=== PATIENT | male | born 1960 | race Caucasian/White ===

== ENCOUNTER 2020-10-16 12:31 | Emergency (ER) | payer BC, SELFPAY ==
[2020-10-16 13:05] VITALS: BP 136/87; PULSE 78; RESP 16; TEMP 37.1; O2SAT 97
--- NOTE | 2020-10-16 13:35 | ED.URI ---
HPI - URI/Sore Throat General Chief Complaint: Upper Respiratory Infection Stated Complaint: cough/congestion Source: patient Mode of arrival: ambulatory Limitations: no limitations History of Present Illness HPI Narrative: 60-year-old male presents to urgent care with complaints of dry nonproductive cough and nasal congestion for the past 5 days. Patient has not tried taking any [id number] medications for symptoms. Patient reports that his currently has similar symptoms. Patient is a smoker. Patient denies nausea, vomiting, diarrhea, fever, body aches, chills, shortness of breath or wheezing. MD elicited complaint: cough and other (chest congestion ) Onset (ago): day(s) (5) Able to tolerate fluids by mouth: Yes Relieving factors: nothing Context: sick contacts Treatments prior to arrival: none Related Data Allergies Allergy/AdvReac Type Severity Reaction Status Date / Time No Known Allergies Allergy Mild Verified 10/16/20 13:03 Review of Systems Constitutional: Constitutional: Denies chills, Denies fatigue, Denies fever(s) and Denies weakness ENT: Denies dysphagia, Denies dizziness, Denies epistaxis, Denies nasal congestion and Denies sore throat Respiratory: Respiratory: Reports chest congestion, Reports cough, Denies dyspnea and Denies wheezing Gastrointestinal: Gastrointestinal: Denies abdominal pain, Denies diarrhea, Denies nausea and Denies vomiting Neurologic: Denies vertigo, Denies dizziness and Denies syncope Endocrine: Endocrine: Denies fatigue PMFSH Family History Family History Mother Patient's mother is in good health Family history of thoracic aortic aneurysm Social History Social History Smoking status: Heavy tobacco smoker Comments At time of signature, I agree with nursing past medical, surgical, social and family history. There is no relevant family history pertinent to the presenting complaint. Exam Const: General: no acute distress and alert Nutritional Appearance: well nourished Orientation/consciousness: patient oriented x3 HENMT: Head: normal to inspection Ears: external ears normal Mouth: Yes moist mucous membranes Throat: posterior oropharynx normal and uvula midline Neck: Neck: normal visual inspection Chest: Chest palpation & inspection: normal inspection of the chest Resp: Effort & Inspection: normal respiratory effort, not labored and not tachypneic Auscultation: clear to auscultation bilaterally, no rales and no wheezes Cardio: Rate: regular rate Rhythm: regular rhythm Heart sounds: no murmurs Skin: General skin exam: normal color Rashes: no rashes Wounds: no wounds Neuro: General: patient oriented x3, moves all extremities and no meningeal signs Speech: normal speech Extrem: General: normal to inspection Course Vital Signs Vital signs: Vital Signs Temperature 37.1 C 10/16/20 13:05 Pulse Rate 78 10/16/20 13:05 Respiratory Rate 16 10/16/20 13:05 Blood Pressure 136/87 10/16/20 13:05 Pulse Oximetry 97 10/16/20 13:05 Temperature 37.1 C 10/16/20 13:05 Pulse Rate 78 10/16/20 13:05 Respiratory Rate 16 10/16/20 13:05 Blood Pressure 136/87 10/16/20 13:05 Pulse Oximetry 97 10/16/20 13:05 MDM - URI/Sore Throat MDM Narrative Medical decision making narrative: Patient agrees to take Claritin daily. Patient agrees to take Tessalon as needed for cough. Patient understand that he is to self quarantine for 10 days since onset of symptoms. Patient understands that local health department should be contacting him. Discussed with patient concern importance of monitoring symptoms very closely. Patient agrees to monitor symptoms and agrees to proceed to the emergency room if symptoms worsen. Differential Diagnosis Differential diagnosis: Likely upper respiratory infection, otitis media and sinusitis Lab Data Labs:
== END 2020-10-16 13:47 | disposition home or self-care (01) ==
PROVIDERS: Emergency Provider Nurse Practitioner Family; PCP Internal Medicine
DX: U07.1 COVID-19 (principal); E78.00 Pure hypercholesterolemia, unspecified
CPT/HCPCS: 87426; 99213; C9803; G0463

== ENCOUNTER 2023-02-21 11:22 | Outpatient (CLI) | payer BC, SELFPAY ==
[2023-02-21 11:42] LABS: Basophils Absolute Auto 0.1 K/mm3 (0.0-0.1); Basophils Percent Auto 0.7 % (0.2-1.2); Eosinophils Absolute Auto 0.6 K/mm3 (0-0.3); Eosinophils Percent Auto 6.2 % (0-4.4); Hematocrit 40.5 % (42.0-52.0); Hemoglobin 13.6 g/dL (14.0-18.0); Immature Granulocyte Absolute 0.02 K/mm3 (0.00-0.031); Immature Granulocyte Percent A 0.2 % (0-0.5); Lymphocytes Absolute Auto 1.58 K/mm3 (0.9-3.2); Lymphocytes Percent Auto 15.6 % (18.3-44.2); Mean Corpuscular HGB Conc 33.6 g/dl (32-36); Mean Corpuscular Hemoglobin 34.2 pg (26-34); Mean Corpuscular Volume 101.8 fl (80-100); Mean Platelet Volume 8.7 fl (7.4-10.4); Monocytes Absolute Auto 0.8 K/mm3 (0.1-0.6); Monocytes Percent Auto 8.3 % (2.6-8.5); Platelet Count Result 235 k/mm3 (150-375); Red Blood Count 3.98 M/mm3 (4.6-6.20); Red Cell Distribution Width 12.4 % (11.5-14.5); White Blood Count 10.2 K/mm3 (4.5-10.0)
[2023-02-21 13:54] LABS: Alanine Aminotransferase 23 U/L (6-50); Albumin Level 4.3 g/dL (3.5-5.1); Alkaline Phosphatase 73 U/L (38-126); Anion Gap 7 mmol/L (8-16); Aspartate Amino Transferase 25 U/L (17-59); Bilirubin,Total 0.4 mg/dL (0.2-1.3); Blood Urea Nitrogen 24 mg/dL (9-20); Calcium 8.9 mg/dL (8.4-10.2); Carbon Dioxide 27 mmol/L (22-30); Chloride 106 mmol/L (98-107); Estimated Glomerular Filt Rate > 60; Glucose 82 mg/dL (65-110); Potassium 4.5 mmol/L (3.4-5.0); Sodium 140 mmol/L (137-145)
[2023-02-21 15:01] LABS: Folic Acid > 20.0 ng/mL (2.76->20)
[2023-02-24 11:46] LABS: Methylmalonic Acid 146 nmol/L (87-318)
== END 2023-02-21 11:23 | disposition home or self-care (01) ==
LOC: ANHLAB 11:23
PROVIDERS: PCP Internal Medicine; Visit Provider Internal Medicine Hematology & Oncology
DX: D75.89 Other specified diseases of blood and blood-forming organs (principal)
CPT/HCPCS: 36415; 80053; 82607; 82746; 83921; 84443; 85025

== ENCOUNTER 2023-03-14 08:34 | Outpatient (CLI) | payer BC, SELFPAY ==
--- NOTE | ~2023-03-14 | US_ITS ---
Abdominal Sonogram: Real-time sonographic imaging of the abdomen was performed. Clinical History: Macrocytosis Findings: The liver appears normal with no evidence of bile duct dilatation. There is a 2.4 x 3.2 x 2.2 cm hyperechoic mass in the right hepatic lobe. Main portal vein demonstrates normal direction of flow. The spleen is normal in size without evidence of focal lesion. The gallbladder is well distend ed, and contains small echogenic gallstones. No gallbladder wall thickening. The common bile duct cara sures 4 mm. The visualized pancreas, aorta, and IVC are unremarkable. The right kidney measures 11. 0 cm in length and the left kidney measures 11.1 cm. There is no hydronephrosis or renal calculus. Impression: Cholelithiasis. 2.4 x 3.2 x 2.2 cm hyperechoic hepatic mass, most likely hemangioma. This likely correlates with lesi on seen on prior MR dated 09/24/2017. Reviewed, dictated and finalized at [facility]. Impression: Cholelithiasis. 2.4 x 3.2 x 2.2 cm hyperechoic hepatic mass, most likely hemangioma. This likel y correlates with lesion seen on prior MR dated 09/24/2017.
== END 2023-03-14 08:35 | disposition home or self-care (01) ==
PROVIDERS: PCP Internal Medicine; Visit Provider Internal Medicine Hematology & Oncology
DX: D75.89 Other specified diseases of blood and blood-forming organs (principal)
CPT/HCPCS: 76700

== ENCOUNTER 2023-09-24 11:00 | Outpatient (CLI) | payer BC, SELFPAY ==
[2023-09-24 11:16] LABS: Basophils Absolute Auto 0.1 K/mm3 (0.0-0.1); Basophils Percent Auto 0.8 % (0.2-1.2); Eosinophils Absolute Auto 0.9 K/mm3 (0-0.3); Eosinophils Percent Auto 9.9 % (0-4.4); Hemoglobin 13.5 g/dL (14.0-18.0); Immature Granulocyte Absolute 0.02 K/mm3 (0.00-0.031); Immature Granulocyte Percent A 0.2 % (0-0.5); Lymphocytes Absolute Auto 2.04 K/mm3 (0.9-3.2); Lymphocytes Percent Auto 22.8 % (18.3-44.2); Mean Corpuscular HGB Conc 33.8 g/dl (32-36); Mean Corpuscular Hemoglobin 33.9 pg (26-34); Mean Corpuscular Volume 100.5 fl (80-100); Mean Platelet Volume 8.9 fl (7.4-10.4); Monocytes Absolute Auto 0.8 K/mm3 (0.1-0.6); Monocytes Percent Auto 9.4 % (2.6-8.5); Neutrophils Absolute Auto 5.1 K/mm3 (1.3-6.7); Neutrophils Percent Auto 56.9 % (45.5-73.1); Platelet Count Result 240 k/mm3 (150-375); Red Blood Count 3.98 M/mm3 (4.6-6.20); Red Cell Distribution Width 12.6 % (11.5-14.5); White Blood Count 8.9 K/mm3 (4.5-10.0)
[2023-09-24 11:24] LABS: Blood Urea Nitrogen 16 mg/dL (8-26); Carbon Dioxide 25 mmol/L (22-30); Chloride 106 mmol/L (98-109); Estimated Glomerular Filt Rate > 60; Glucose 97 mg/dL (70-105); Ionized Calcium (POC) 1.22 mmol/L (1.11-1.31); Potassium 4.6 mmol/L (3.5-4.9); Sodium 141 mmol/L (138-146)
[2023-09-24 22:59] LABS: Folic Acid > 20.0 ng/mL (2.76->20)
== END 2023-09-24 11:01 | disposition home or self-care (01) ==
LOC: ANHLAB 11:01
PROVIDERS: PCP Internal Medicine; Visit Provider Internal Medicine Hematology & Oncology
DX: D75.89 Other specified diseases of blood and blood-forming organs (principal)
CPT/HCPCS: 36415; 80047; 82607; 82746; 85025

== ENCOUNTER 2025-03-19 19:15 | Observation (INO) | payer MEDICARE, SELFPAY ==
[2025-03-19] VITALS (13 sets, daily range): BP systolic 130–161; BP diastolic 76–98; PULSE 70–93; RESP 14–24; TEMP 36.7; O2SAT 94–97
--- NOTE | ~2025-03-19 | CT_ITS ---
EXAMINATION: CTA BRAIN/CAROTID DATE: 03/19/2025 19:54 INDICATION: Vertigo TECHNIQUE: Computed tomographic angiography (CTA) of the head and neck was performed with 100 mL Omnipaque-350 intravenous contrast. Multiplanar reconstructions and maximum intensity projection 3D-reconstructions of the carotid arteries and of the intracranial arteries were created by the technologist on a separate workstation. Precontrast CT of the head was also obtained. Automated exposure control and iterative reconstruction technique were employed.The dose-length product was 1734.79 mGy-cm. COMPARISON: None. FINDINGS: Head: No acute intracranial hemorrhage, acute infarction or abnormal extra axial fluid collection. Ventricles are normal and symmetric. No mass/mass effect. No abnormally enhancing brain lesions on the postcontrast imaging. Mucosal thickening in the left maxillary and bilateral ethmoid sinuses. Thickened scl erotic aguilar of the right maxillary sinus consistent with sequela of chronic sinusitis. The orbits and mastoid air cells are normal. Debris/cerumen at the left external auditory canal. Intracranial arteries Right vertebral artery is dominant with nearly indiscernible diminutive left vertebral artery. Minimal atherosclerotic plaque without hemodynamically significant stenosis at the bilateral carotid siphons. There is no hemodynamically significant stenosis in the vertebral, basilar and internal carotid arteries. Both A1 and P1 segments are patent. There is also a patent right posterior communicating artery. There are no aneurysms identified. Cerebral arterial arborization appears symmetric. Carotid arteries: The aortic arch and the great vessels arising from the arch are normal in caliber with no dissection or hemodynamically significant stenosis. Small amount of nonhemodynamically significant atherosclerotic plaque at the distalmost right common carotid artery. There is no evident atherosclerotic plaque with 0% stenosis of the right and left carotid bulbs relative to normal distal artery lumen diameter (NASCET criteria). Mild to moderate emphysema with dependent atelectasis in the visualized upper lungs. Cervical soft tissues are unremarkable. Mild cervical spondylosis. IMPRESSION: 1. No evident atherosclerotic plaque with 0% stenosis of the right left carotid bulbs relative to normal distal artery lumen diameter (NASCET criteria). 2. Unremarkable cerebral CT angiogram with no hemodynamically significant stenosis, aneurysm or thrombosis. 3. Normal for age brain with no acute intracranial process or abnormally enhancing brain lesions. Reviewed, dictated and finalized at location A. IMPRESSION: 1. No evident atherosclerotic plaque with 0% stenosis of the right left carotid bulbs relative to normal distal artery lumen diameter (NASCET criteria). 2. Unremarkable cerebral CT angiogram with no hemodynamically significant steno sis, aneurysm or thrombosis. 3. Normal for age brain with no acute intracranial process or abnormally enhanc ing brain lesions.
--- NOTE | ~2025-03-19 | XR_ITS ---
EXAMINATION: XR chest 1V portable DATE: 03/19/2025 19:58 INDICATION: Syncope TECHNIQUE: frontal view of the chest was obtained. COMPARISON: Chest CT dated 06/19/2018 and chest radiograph dated 11/12/05 FINDINGS: Increased interstitial opacities and bronchial wall thickening in the left lower lung zone and bilateral perihilar regions. No pleural effusion or pneumothorax. The cardiomediastinal silhouette is normal. IMPRESSION: 1. Increased interstitial opacities and bronchial wall thickening in the bilateral perihilar regions and left lower lung zone which could represent bronchitis and probably slight/early pneumonia or asymmetric mild pulmonary edema. Reviewed, dictated and finalized at location A. IMPRESSION: 1. Increased interstitial opacities and bronchial wall thickening in the bilate ral perihilar regions and left lower lung zone which could represent bronchitis and probably slight/early pneumonia or asymmetric mild pulmonary edema.
--- NOTE | ~2025-03-19 | MR_ITS ---
EXAMINATION: MR brain/brain stem wo/w con DATE: 03/20/2025 14:24 INDICATION: Vertigo TECHNIQUE: Magnetic resonance imaging (MRI) of the brain and brainstem was performed without and with 17 mL Multihance intravenous contrast. Sequences included sagittal and axial T1-weighted SE, axial diffusion-weighted FS SE, axial 3D SWAN, axial T2-weighted FLAIR, and axial T2-weighted FSE. Postcontrast axial and coronal T1-weighted SE was obtained. Apparent diffusion coefficient (ADC) maps were created. COMPARISON: CT and CT angiogram dated 03/19/2025 FINDINGS: There are no areas of restricted diffusion to suggest acute infarction. No intracranial hemorrhage or abnormal intracranial mass lesion. There are scattered areas of nonspecific increased T2-weighted signal intensity in the cerebral white matter, predominantly involving the deep and periventricular whi te matter. There are no intraparenchymal signal abnormalities seen on the other pulse sequences. The ventricles are symmetric and normal in size. There are no abnormal extra-axial fluid collections. Flow voids are seen in the cerebral arteries on the T2-weighted sequences consistent with their expected patency. Right vertebral artery is dominant. Visualized orbits and soft tissues are unremarkable. Mucosal thickening throughout the paranasal sinuses. There are no areas of abnormal enhancement on the post contrast images. IMPRESSION: 1. Mild scattered mesenteric white matter T2 hyperintensity which within normal limits for age and likely sequela of chronic small vessel ischemic disease. No acute intracranial process or abnormally enhancing brain lesions. Reviewed, dictated and finalized at location A.
--- NOTE | 2025-03-19 19:18 | ECG_ITS ---
Test Date: 2025-03-19 19:19:56 Measurements Intervals [place] Rate: 71 P: 18 DE: 180 QRS: -4 QRSD: 97 T: 30 QT: 373 QTc: 408 Interpretive Statements SINUS RHYTHM EARLY PRECORDIAL R/S TRANSITION BASELINE ARTIFACT- II, III, AVR, AVL, AVF BORDERLINE ECG No previous ECG available for comparison Electronically Signed On 03-20-2025 06:20:43 CDT by Oleg Liu D.O.
--- NOTE | 2025-03-19 19:31 | ED.DIZZY ---
HPI - Dizziness General Chief Complaint: Syncope Stated Complaint: NEAR SYNCOPE Source: patient Mode of arrival: EMS Limitations: no limitations History of Present Illness HPI Narrative: Patient is a 65-year-old male presents to the emergency department by EMS for feeling off balance. Patient also started about 45 minutes to 1 hour ago around 6:30 p.m., patient was resting and went to stand up and started to feel very off balance like everything was spinning around him, notes it has been constant since started without any resolution or fatigue. Patient denies any history of this in the past. Patient denies use of blood thinners aside from 81 mg aspirin. Patient denies any recent injuries or recent illness. Patient denies chest pain, difficulty breathing, abdominal pain, vomiting, melena, hematochezia, diarrhea, focal weakness, numbness, difficulty swallowing, vision changes outside of the room spinning. Admits to associated nausea. Related Data Allergies Allergy/AdvReac Type Severity Reaction Status Date / Time No Known Allergies Allergy Mild Verified 10/16/20 13:03 Review of Systems Review of Systems: A 10 system review of systems was completed on the patient and is negative except for what is stated in the HPI. Nursing and ancillary documentation was reviewed. [facility] Family History Family History Mother Patient's mother is in good health Family history of thoracic aortic aneurysm Social History Social History Smoking status: Heavy tobacco smoker Exam Narrative: CONST: No acute distress. Well nourished. Patient is lying in the bed with his eyes closed. HENMT: Head is normocephalic and atraumatic. Moist mucous membranes. No posterior oropharynx erythema. EYES: No scleral icterus. No conjunctival injection or pallor. PERRL. NECK: No meningeal signs. RESP: Able to speak in full sentences. Normal respiratory effort. CTAB. CARDIO: Regular rate. Regular rhythm. 2+ DP and radial pulses bilaterally. GI: Nondistended. No tenderness to palpation. Soft. : No CVA tenderness to palpation. SKIN: No rashes or lesions noted on exposed skin. NEURO: Oriented x3. Moves all extremities. No drift to the bilateral upper extremities and no drift to the bilateral lower extremities. Lcninx-[id number] testing bilaterally is normal. Normal rjnf-om-[id number] testing bilaterally. speech is clear and fluent. No olvin inattention or extinction. Sensation intact to light touch throughout all 4 extremities. bilateral nystagmus is present. Visual mason intact to confrontation. No facial asymmetry. EXTREM/MSK/BACK: No pedal edema. PSYCH: Normal affect. Course Vital Signs Vital signs: Vital Signs Temperature 98.0 F 03/19/25 19:13 Pulse Rate 70 03/19/25 19:13 Respiratory Rate 18 03/19/25 19:13 Blood Pressure 158/98 H 03/19/25 19:13 Pulse Oximetry 95 03/19/25 19:13 Oxygen Delivery Room Air 03/19/25 19:13 Temperature 98.0 F 03/19/25 19:13 Pulse Rate 70 03/19/25 19:13 Respiratory Rate 18 03/19/25 19:13 Blood Pressure 158/98 H 03/19/25 19:13 Pulse Oximetry 95 03/19/25 19:13 Oxygen Delivery Room Air 03/19/25 19:13 MDM - Dizziness MDM Narrative Medical decision making narrative: Patient presents with the above complaint. Initial vitals are remarkable for no significant abnormalities. Physical examination as noted above. DDx: CVA, BPPV, metabolic derangement, dehydration, seizure, labyrinthitis, Meniere's, near syncope, ACS. NIHSS: 0 last known well was around 6:30 p.m. tonight. Patient sent to the CT scanner, EKG, laboratory analysis, continues cardiac monitoring, continuous pulse oximetry, chest x-ray, IV fluids. Concern for possible posterior CVA given the constant vertigo, will discuss with Neurology regarding potential tNK administration. 20:03 - [facility] access line contacted to speak with the stroke team regarding tNK administration. I was connected with Dr. Aguayo the [facility] neurologist. Recommends to avoid IV thrombolysis if mild symptoms, often these patients will do well overtime, no contraindications, recommends shared decision with patient. Recommends not giving thrombolysis unless patient really wants it. 20:10 - Patient initially states that he feels like it is getting slightly better but has not gone away, she decision making performed regarding IV thrombolysis and patient is hesitant at this time, some talk with his about it further and make a decision, will get back to me shortly. Tenecteplase Administered? Yes, Verbal Informed Consent Obtained from: Patient Patient: Discussions to obtain informed consent for tenecteplase included: risk of bleeding, including in the brain, that can result in ; benefit of decreased functional disability; as well as alternatives, including no treatment or conservative treatment with antiplatelet therapy 20:50 - After extension discussion shared decision making with patient and patient notes he would like to proceed with thrombolytics. This is debilitating for the patient. U contacted again. Spoke with Dr. Aguayo who wants transfer from ED to ED. ER doctor Sang contacted who has accepted the patient for transfer. 21:00 - Patient has not changed his mind and has decided not to proceed with any thrombolytics and transfer. [facility] cancel the transfer. Will bring patient in the hospital here for Neurology and MRI and further evaluation. Patient states that he can change his mind in any given point however there is still a for half window and we need to be within that timeframe. I spoke with our hospitalist who notes he would take the patient however need the ensure that Neurology is here for evaluation. I spoke with the neurologist on-call who notes that they when a fever tomorrow. Hospitalist is therefore recommended transfer. I spoke with family who do not have any specific preference for location. I spoke with the [facility] access line, connected with Dr. Aguayo, accepted for transfer, non time critical. No acute interventions from neurointerventional. Will try to find alternative facilities with bed availability. Spoke with [facility] hospitalist who feels like this patient does require transfer, ischemia by his from a hospitalist standpoint without Neurology with getting an MRI and is something is abnormal on the MRI can always proceed with transfer down the road. I was back up to the hospitalist, pending call back at this time. I spoke with the hospitalist on-call who has accepted the patient for admission, [facility]. CRITICAL CARE ADDENDUM: Indication: [employer] compromise, stroke like symptoms Time type: intermittent? I provided a total of 55 minutes of critical care excluding separately billable procedures.? This includes time w/ initial bedside evaluation, review of testing done while under my care, discussion w/ the family, nurses, funeral pre need consultant and guiding the patient?s care while in the emergency department. Approximate time distribution: 15 minutes ? Initial evaluation, d/w involved parties, attempting to gather old records. 10 minutes ? Documenting medical record 10 minutes ? Review of results (EKGs, labs, imaging) 10 minutes ? Serial repeat bedside evaluation 10 minutes ? Discussing case with multiple providers Please see main chart for details. Excludes separately billable procedures. Medical Records Attestation: I reviewed the patient's medical records. Lab Data Attestation: I reviewed the patient's lab results. Lab results narrative: CBC reveals a hemoglobin of 12.3. Comprehensive metabolic panel reveals a BUN of 29. Magnesium is 2.1. Troponin is less than 0.012. BNP is 33. Ethyl alcohol level is less than 10. Coags are within normal limits. Lactic acid is 0.6. Total creatine kinase is 165. TSH is 3.210. Lipase is within normal limits. Urinalysis is without any significant abnormalities. UDS is negative. 03/19/25 19:29 03/19/25 19:48 Labs: Lab Results 03/19/25 03/19/25 03/19/25 Range/Units 19:29 19:29 19:29 WBC 8.1 (4.5-10.0) K/mm3 RBC 3.72 L (4.6-6.20) M/mm3 Hgb 12.3 L (14.0-18.0) g/dL Hct 37.3 L (42.0-52.0) % MCV 100.3 H (80-100) fl MCH 33.1 (26-34) pg MCHC 33.0 (32-36) g/dl RDW 13.2 (11.5-14.5) % Plt Count 219 (150-375) k/mm3 MPV 8.9 (7.4-10.4) fl Immature Gran % (Auto) 0.2 (0-0.5) % Neut % (Auto) 48.7 (45.5-73.1) % Lymph % (Auto) 31.4 (18.3-44.2) % [place] % (Auto) 10.4 H (2.6-8.5) % Eos % (Auto) 8.4 H (0-4.4) % Baso % (Auto) 0.9 (0.2-1.2) % Lymph # (Auto) 2.53 (0.9-3.2) K/mm3 [place] # (Auto) 0.8 H (0.1-0.6) K/mm3 Eos # (Auto) 0.7 H (0-0.3) K/mm3 Baso # (Auto) 0.1 (0.0-0.1) K/mm3 Abs Immat Gran (auto) 0.02 (0.00-0.031) K/mm3 Absolute Neuts (auto) 3.9 (1.3-6.7) K/mm3 Absolute Nucleated RBC 0.000 (0.0-0.012) K/mm3 Nucleated RBC % 0.0 (0.0-0.2) % PT 13.5 (11.1-14.7) Seconds INR 1.0 APTT 23.9 (22.3-36.8) Seconds Sodium Cancelled 140 Potassium Cancelled 4.0 Chloride Cancelled Carbon Dioxide Anion Gap BUN Creatinine Estim Creat Clear Calc Estimated GFR Glucose POC Capillary Glucose (65-105) mg/dl Lactic Acid (0.7-2.0) mmol/L Calcium Magnesium (1.6-2.3) mg/dL Total Bilirubin AST ALT Alkaline Phosphatase Total Creatine Kinase (55-170) U/L Troponin I (0.000-0.034) ng/mL NT-Pro-B Natriuret Pep (19.9-100) pg/mL Total Protein Albumin Lipase (23-300) U/L TSH (Reflex) (0.465-4.68) uIU/mL Urine Color (Yellow) Urine Appearance (Clear) Urine pH (5.0-9.0) Ur Specific [place] (1.001-1.035) Urine Protein (Negative) mg/dL Urine Glucose (UA) (Negative) mg/dL Urine Ketones (Negative) mg/dL Ur Blood (Man) (Negative) Urine Nitrate (Negative) Urine Bilirubin (Negative) Urine Urobilinogen (<2.0) mg/dL Leukocyte Esterase Rfl (Negative) VIDAL/UL Urine RBC (0-2) /hpf Urine WBC (0-3) /hpf Ur Squamous Epith Cells (Few) /hpf Urine Bacteria /hpf Urine Casts Urine Opiates Screen (Negative) Urine Methadone Screen (Negative) Ur Barbiturates Screen (Negative) Ur Phencyclidine Scrn (Negative) Ur Amphetamine Screen (Negative) U Benzodiazepines Scrn (Negative) Urine Cocaine Screen (Negative) U Cannabinoids Screen (Negative) Ethyl Alcohol (<10) mg/dL 03/19/25 03/19/25 03/19/25 Range/Units 19:29 19:29 19:29 WBC (4.5-10.0) K/mm3 RBC (4.6-6.20) M/mm3 Hgb (14.0-18.0) g/dL Hct (42.0-52.0) % MCV (80-100) fl MCH (26-34) pg MCHC (32-36) g/dl RDW (11.5-14.5) % Plt Count (150-375) k/mm3 MPV (7.4-10.4) fl Immature Gran % (Auto) (0-0.5) % Neut % (Auto) (45.5-73.1) % Lymph % (Auto) (18.3-44.2) % [place] % (Auto) (2.6-8.5) % Eos % (Auto) (0-4.4) % Baso % (Auto) (0.2-1.2) % Lymph # (Auto) (0.9-3.2) K/mm3 [place] # (Auto) (0.1-0.6) K/mm3 Eos # (Auto) (0-0.3) K/mm3 Baso # (Auto) (0.0-0.1) K/mm3 Abs Immat Gran (auto) (0.00-0.031) K/mm3 Absolute Neuts (auto) (1.3-6.7) K/mm3 Absolute Nucleated RBC (0.0-0.012) K/mm3 Nucleated RBC % (0.0-0.2) % PT (11.1-14.7) Seconds INR APTT (22.3-36.8) Seconds Sodium Potassium Chloride 107 Carbon Dioxide Cancelled 24 Anion Gap Cancelled 9 BUN Cancelled Creatinine Estim Creat Clear Calc Estimated GFR Glucose POC Capillary Glucose (65-105) mg/dl Lactic Acid (0.7-2.0) mmol/L Calcium Magnesium (1.6-2.3) mg/dL Total Bilirubin AST ALT Alkaline Phosphatase Total Creatine Kinase (55-170) U/L Troponin I (0.000-0.034) ng/mL NT-Pro-B Natriuret Pep (19.9-100) pg/mL Total Protein Albumin Lipase (23-300) U/L TSH (Reflex) (0.465-4.68) uIU/mL Urine Color (Yellow) Urine Appearance (Clear) Urine pH (5.0-9.0) Ur Specific [place] (1.001-1.035) Urine Protein (Negative) mg/dL Urine Glucose (UA) (Negative) mg/dL Urine Ketones (Negative) mg/dL Ur Blood (Man) (Negative) Urine Nitrate (Negative) Urine Bilirubin (Negative) Urine Urobilinogen (<2.0) mg/dL Leukocyte Esterase Rfl (Negative) VIDAL/UL Urine RBC (0-2) /hpf Urine WBC (0-3) /hpf Ur Squamous Epith Cells (Few) /hpf Urine Bacteria /hpf Urine Casts Urine Opiates Screen (Negative) Urine Methadone Screen (Negative) Ur Barbiturates Screen (Negative) Ur Phencyclidine Scrn (Negative) Ur Amphetamine Screen (Negative) U Benzodiazepines Scrn (Negative) Urine Cocaine Screen (Negative) U Cannabinoids Screen (Negative) Ethyl Alcohol (<10) mg/dL 03/19/25 03/19/25 03/19/25 Range/Units 19:29 19:29 19:29 WBC (4.5-10.0) K/mm3 RBC (4.6-6.20) M/mm3 Hgb (14.0-18.0) g/dL Hct (42.0-52.0) % MCV (80-100) fl MCH (26-34) pg MCHC (32-36) g/dl RDW (11.5-14.5) % Plt Count (150-375) k/mm3 MPV (7.4-10.4) fl Immature Gran % (Auto) (0-0.5) % Neut % (Auto) (45.5-73.1) % Lymph % (Auto) (18.3-44.2) % [place] % (Auto) (2.6-8.5) % Eos % (Auto) (0-4.4) % Baso % (Auto) (0.2-1.2) % Lymph # (Auto) (0.9-3.2) K/mm3 [place] # (Auto) (0.1-0.6) K/mm3 Eos # (Auto) (0-0.3) K/mm3 Baso # (Auto) (0.0-0.1) K/mm3 Abs Immat Gran (auto) (0.00-0.031) K/mm3 Absolute Neuts (auto) (1.3-6.7) K/mm3 Absolute Nucleated RBC (0.0-0.012) K/mm3 Nucleated RBC % (0.0-0.2) % PT (11.1-14.7) Seconds INR APTT (22.3-36.8) Seconds Sodium Potassium Chloride Carbon Dioxide Anion Gap BUN 29 H Creatinine Cancelled 1.00 Estim Creat Clear Calc Cancelled 62 Estimated GFR Cancelled Glucose POC Capillary Glucose (65-105) mg/dl Lactic Acid (0.7-2.0) mmol/L Calcium Magnesium (1.6-2.3) mg/dL Total Bilirubin AST ALT Alkaline Phosphatase Total Creatine Kinase (55-170) U/L Troponin I (0.000-0.034) ng/mL NT-Pro-B Natriuret Pep (19.9-100) pg/mL Total Protein Albumin Lipase (23-300) U/L TSH (Reflex) (0.465-4.68) uIU/mL Urine Color (Yellow) Urine Appearance (Clear) Urine pH (5.0-9.0) Ur Specific [place] (1.001-1.035) Urine Protein (Negative) mg/dL Urine Glucose (UA) (Negative) mg/dL Urine Ketones (Negative) mg/dL Ur Blood (Man) (Negative) Urine Nitrate (Negative) Urine Bilirubin (Negative) Urine Urobilinogen (<2.0) mg/dL Leukocyte Esterase Rfl (Negative) VIDAL/UL Urine RBC (0-2) /hpf Urine WBC (0-3) /hpf Ur Squamous Epith Cells (Few) /hpf Urine Bacteria /hpf Urine Casts Urine Opiates Screen (Negative) Urine Methadone Screen (Negative) Ur Barbiturates Screen (Negative) Ur Phencyclidine Scrn (Negative) Ur Amphetamine Screen (Negative) U Benzodiazepines Scrn (Negative) Urine Cocaine Screen (Negative) U Cannabinoids Screen (Negative) Ethyl Alcohol (<10) mg/dL 03/19/25 03/19/25 03/19/25 Range/Units 19:29 19:29 19:29 WBC (4.5-10.0) K/mm3 RBC (4.6-6.20) M/mm3 Hgb (14.0-18.0) g/dL Hct (42.0-52.0) % MCV (80-100) fl MCH (26-34) pg MCHC (32-36) g/dl RDW (11.5-14.5) % Plt Count (150-375) k/mm3 MPV (7.4-10.4) fl Immature Gran % (Auto) (0-0.5) % Neut % (Auto) (45.5-73.1) % Lymph % (Auto) (18.3-44.2) % [place] % (Auto) (2.6-8.5) % Eos % (Auto) (0-4.4) % Baso % (Auto) (0.2-1.2) % Lymph # (Auto) (0.9-3.2) K/mm3 [place] # (Auto) (0.1-0.6) K/mm3 Eos # (Auto) (0-0.3) K/mm3 Baso # (Auto) (0.0-0.1) K/mm3 Abs Immat Gran (auto) (0.00-0.031) K/mm3 Absolute Neuts (auto) (1.3-6.7) K/mm3 Absolute Nucleated RBC (0.0-0.012) K/mm3 Nucleated RBC % (0.0-0.2) % PT (11.1-14.7) Seconds INR APTT (22.3-36.8) Seconds Sodium Potassium Chloride Carbon Dioxide Anion Gap BUN Creatinine Estim Creat Clear Calc Estimated GFR > 60 Glucose Cancelled 100 POC Capillary Glucose (65-105) mg/dl Lactic Acid (0.7-2.0) mmol/L Calcium Cancelled 8.6 Magnesium 2.1 (1.6-2.3) mg/dL Total Bilirubin Cancelled AST ALT Alkaline Phosphatase Total Creatine Kinase (55-170) U/L Troponin I (0.000-0.034) ng/mL NT-Pro-B Natriuret Pep (19.9-100) pg/mL Total Protein Albumin Lipase (23-300) U/L TSH (Reflex) (0.465-4.68) uIU/mL Urine Color (Yellow) Urine Appearance (Clear) Urine pH (5.0-9.0) Ur Specific [place] (1.001-1.035) Urine Protein (Negative) mg/dL Urine Glucose (UA) (Negative) mg/dL Urine Ketones (Negative) mg/dL Ur Blood (Man) (Negative) Urine Nitrate (Negative) Urine Bilirubin (Negative) Urine Urobilinogen (<2.0) mg/dL Leukocyte Esterase Rfl (Negative) VIDAL/UL Urine RBC (0-2) /hpf Urine WBC (0-3) /hpf Ur Squamous Epith Cells (Few) /hpf Urine Bacteria /hpf Urine Casts Urine Opiates Screen (Negative) Urine Methadone Screen (Negative) Ur Barbiturates Screen (Negative) Ur Phencyclidine Scrn (Negative) Ur Amphetamine Screen (Negative) U Benzodiazepines Scrn (Negative) Urine Cocaine Screen (Negative) U Cannabinoids Screen (Negative) Ethyl Alcohol (<10) mg/dL 03/19/25 03/19/25 03/19/25 Range/Units 19:29 19:29 19:29 WBC (4.5-10.0) K/mm3 RBC (4.6-6.20) M/mm3 Hgb (14.0-18.0) g/dL Hct (42.0-52.0) % MCV (80-100) fl MCH (26-34) pg MCHC (32-36) g/dl RDW (11.5-14.5) % Plt Count (150-375) k/mm3 MPV (7.4-10.4) fl Immature Gran % (Auto) (0-0.5) % Neut % (Auto) (45.5-73.1) % Lymph % (Auto) (18.3-44.2) % [place] % (Auto) (2.6-8.5) % Eos % (Auto) (0-4.4) % Baso % (Auto) (0.2-1.2) % Lymph # (Auto) (0.9-3.2) K/mm3 [place] # (Auto) (0.1-0.6) K/mm3 Eos # (Auto) (0-0.3) K/mm3 Baso # (Auto) (0.0-0.1) K/mm3 Abs Immat Gran (auto) (0.00-0.031) K/mm3 Absolute Neuts (auto) (1.3-6.7) K/mm3 Absolute Nucleated RBC (0.0-0.012) K/mm3 Nucleated RBC % (0.0-0.2) % PT (11.1-14.7) Seconds INR APTT (22.3-36.8) Seconds Sodium Potassium Chloride Carbon Dioxide Anion Gap BUN Creatinine Estim Creat Clear Calc Estimated GFR Glucose POC Capillary Glucose (65-105) mg/dl Lactic Acid (0.7-2.0) mmol/L Calcium Magnesium (1.6-2.3) mg/dL Total Bilirubin 0.3 AST Cancelled 32 ALT Cancelled 23 Alkaline Phosphatase Cancelled Total Creatine Kinase (55-170) U/L Troponin I (0.000-0.034) ng/mL NT-Pro-B Natriuret Pep (19.9-100) pg/mL Total Protein Albumin Lipase (23-300) U/L TSH (Reflex) (0.465-4.68) uIU/mL Urine Color (Yellow) Urine Appearance (Clear) Urine pH (5.0-9.0) Ur Specific [place] (1.001-1.035) Urine Protein (Negative) mg/dL Urine Glucose (UA) (Negative) mg/dL Urine Ketones (Negative) mg/dL Ur Blood (Man) (Negative) Urine Nitrate (Negative) Urine Bilirubin (Negative) Urine Urobilinogen (<2.0) mg/dL Leukocyte Esterase Rfl (Negative) VIDAL/UL Urine RBC (0-2) /hpf Urine WBC (0-3) /hpf Ur Squamous Epith Cells (Few) /hpf Urine Bacteria /hpf Urine Casts Urine Opiates Screen (Negative) Urine Methadone Screen (Negative) Ur Barbiturates Screen (Negative) Ur Phencyclidine Scrn (Negative) Ur Amphetamine Screen (Negative) U Benzodiazepines Scrn (Negative) Urine Cocaine Screen (Negative) U Cannabinoids Screen (Negative) Ethyl Alcohol (<10) mg/dL 03/19/25 03/19/25 03/19/25 Range/Units 19:29 19:29 19:29 WBC (4.5-10.0) K/mm3 RBC (4.6-6.20) M/mm3 Hgb (14.0-18.0) g/dL Hct (42.0-52.0) % MCV (80-100) fl MCH (26-34) pg MCHC (32-36) g/dl RDW (11.5-14.5) % Plt Count (150-375) k/mm3 MPV (7.4-10.4) fl Immature Gran % (Auto) (0-0.5) % Neut % (Auto) (45.5-73.1) % Lymph % (Auto) (18.3-44.2) % [place] % (Auto) (2.6-8.5) % Eos % (Auto) (0-4.4) % Baso % (Auto) (0.2-1.2) % Lymph # (Auto) (0.9-3.2) K/mm3 [place] # (Auto) (0.1-0.6) K/mm3 Eos # (Auto) (0-0.3) K/mm3 Baso # (Auto) (0.0-0.1) K/mm3 Abs Immat Gran (auto) (0.00-0.031) K/mm3 Absolute Neuts (auto) (1.3-6.7) K/mm3 Absolute Nucleated RBC (0.0-0.012) K/mm3 Nucleated RBC % (0.0-0.2) % PT (11.1-14.7) Seconds INR APTT (22.3-36.8) Seconds Sodium Potassium Chloride Carbon Dioxide Anion Gap BUN Creatinine Estim Creat Clear Calc Estimated GFR Glucose POC Capillary Glucose (65-105) mg/dl Lactic Acid (0.7-2.0) mmol/L Calcium Magnesium (1.6-2.3) mg/dL Total Bilirubin AST ALT Alkaline Phosphatase 87 Total Creatine Kinase 165 (55-170) U/L Troponin I < 0.012 (0.000-0.034) ng/mL NT-Pro-B Natriuret Pep 33 (19.9-100) pg/mL Total Protein Cancelled 6.9 Albumin Cancelled 4.2 Lipase 106 (23-300) U/L TSH (Reflex) 3.210 (0.465-4.68) uIU/mL Urine Color (Yellow) Urine Appearance (Clear) Urine pH (5.0-9.0) Ur Specific [place] (1.001-1.035) Urine Protein (Negative) mg/dL Urine Glucose (UA) (Negative) mg/dL Urine Ketones (Negative) mg/dL Ur Blood (Man) (Negative) Urine Nitrate (Negative) Urine Bilirubin (Negative) Urine Urobilinogen (<2.0) mg/dL Leukocyte Esterase Rfl (Negative) VIDAL/UL Urine RBC (0-2) /hpf Urine WBC (0-3) /hpf Ur Squamous Epith Cells (Few) /hpf Urine Bacteria /hpf Urine Casts Urine Opiates Screen (Negative) Urine Methadone Screen (Negative) Ur Barbiturates Screen (Negative) Ur Phencyclidine Scrn (Negative) Ur Amphetamine Screen (Negative) U Benzodiazepines Scrn (Negative) Urine Cocaine Screen (Negative) U Cannabinoids Screen (Negative) Ethyl Alcohol < 10 (<10) mg/dL 03/19/25 03/19/25 03/19/25 Range/Units 19:37 19:48 19:57 WBC (4.5-10.0) K/mm3 RBC (4.6-6.20) M/mm3 Hgb (14.0-18.0) g/dL Hct (42.0-52.0) % MCV (80-100) fl MCH (26-34) pg MCHC (32-36) g/dl RDW (11.5-14.5) % Plt Count (150-375) k/mm3 MPV (7.4-10.4) fl Immature Gran % (Auto) (0-0.5) % Neut % (Auto) (45.5-73.1) % Lymph % (Auto) (18.3-44.2) % [place] % (Auto) (2.6-8.5) % Eos % (Auto) (0-4.4) % Baso % (Auto) (0.2-1.2) % Lymph # (Auto) (0.9-3.2) K/mm3 [place] # (Auto) (0.1-0.6) K/mm3 Eos # (Auto) (0-0.3) K/mm3 Baso # (Auto) (0.0-0.1) K/mm3 Abs Immat Gran (auto) (0.00-0.031) K/mm3 Absolute Neuts (auto) (1.3-6.7) K/mm3 Absolute Nucleated RBC (0.0-0.012) K/mm3 Nucleated RBC % (0.0-0.2) % PT (11.1-14.7) Seconds INR APTT (22.3-36.8) Seconds Sodium Potassium Chloride Carbon Dioxide Anion Gap BUN Creatinine 1.10 Estim Creat Clear Calc 56 Estimated GFR > 60 Glucose POC Capillary Glucose 93 (65-105) mg/dl Lactic Acid 0.6 L (0.7-2.0) mmol/L Calcium Magnesium (1.6-2.3) mg/dL Total Bilirubin AST ALT Alkaline Phosphatase Total Creatine Kinase (55-170) U/L Troponin I (0.000-0.034) ng/mL NT-Pro-B Natriuret Pep (19.9-100) pg/mL Total Protein Albumin Lipase (23-300) U/L TSH (Reflex) (0.465-4.68) uIU/mL Urine Color (Yellow) Urine Appearance (Clear) Urine pH (5.0-9.0) Ur Specific [place] (1.001-1.035) Urine Protein (Negative) mg/dL Urine Glucose (UA) (Negative) mg/dL Urine Ketones (Negative) mg/dL Ur Blood (Man) (Negative) Urine Nitrate (Negative) Urine Bilirubin (Negative) Urine Urobilinogen (<2.0) mg/dL Leukocyte Esterase Rfl (Negative) VIDAL/UL Urine RBC (0-2) /hpf Urine WBC (0-3) /hpf Ur Squamous Epith Cells (Few) /hpf Urine Bacteria /hpf Urine Casts Urine Opiates Screen (Negative) Urine Methadone Screen (Negative) Ur Barbiturates Screen (Negative) Ur Phencyclidine Scrn (Negative) Ur Amphetamine Screen (Negative) U Benzodiazepines Scrn (Negative) Urine Cocaine Screen (Negative) U Cannabinoids Screen (Negative) Ethyl Alcohol (<10) mg/dL 03/19/25 Range/Units 20:23 WBC (4.5-10.0) K/mm3 RBC (4.6-6.20) M/mm3 Hgb (14.0-18.0) g/dL Hct (42.0-52.0) % MCV (80-100) fl MCH (26-34) pg MCHC (32-36) g/dl RDW (11.5-14.5) % Plt Count (150-375) k/mm3 MPV (7.4-10.4) fl Immature Gran % (Auto) (0-0.5) % Neut % (Auto) (45.5-73.1) % Lymph % (Auto) (18.3-44.2) % [place] % (Auto) (2.6-8.5) % Eos % (Auto) (0-4.4) % Baso % (Auto) (0.2-1.2) % Lymph # (Auto) (0.9-3.2) K/mm3 [place] # (Auto) (0.1-0.6) K/mm3 Eos # (Auto) (0-0.3) K/mm3 Baso # (Auto) (0.0-0.1) K/mm3 Abs Immat Gran (auto) (0.00-0.031) K/mm3 Absolute Neuts (auto) (1.3-6.7) K/mm3 Absolute Nucleated RBC (0.0-0.012) K/mm3 Nucleated RBC % (0.0-0.2) % PT (11.1-14.7) Seconds INR APTT (22.3-36.8) Seconds Sodium Potassium Chloride Carbon Dioxide Anion Gap BUN Creatinine Estim Creat Clear Calc Estimated GFR Glucose POC Capillary Glucose (65-105) mg/dl Lactic Acid (0.7-2.0) mmol/L Calcium Magnesium (1.6-2.3) mg/dL Total Bilirubin AST ALT Alkaline Phosphatase Total Creatine Kinase (55-170) U/L Troponin I (0.000-0.034) ng/mL NT-Pro-B Natriuret Pep (19.9-100) pg/mL Total Protein Albumin Lipase (23-300) U/L TSH (Reflex) (0.465-4.68) uIU/mL Urine Color Yellow (Yellow) Urine Appearance Cloudy H (Clear) Urine pH 6.5 (5.0-9.0) Ur Specific [place] 1.043 H (1.001-1.035) Urine Protein Negative (Negative) mg/dL Urine Glucose (UA) Negative (Negative) mg/dL Urine Ketones Negative (Negative) mg/dL Ur Blood (Man) Negative (Negative) Urine Nitrate Negative (Negative) Urine Bilirubin Negative (Negative) Urine Urobilinogen 0.2 (<2.0) mg/dL Leukocyte Esterase Rfl Negative (Negative) VIDAL/UL Urine RBC 0-2 (0-2) /hpf Urine WBC 0-5 (0-3) /hpf Ur Squamous Epith Cells None seen (Few) /hpf Urine Bacteria None seen /hpf Urine Casts 0-2 Urine Opiates Screen Negative (Negative) Urine Methadone Screen Negative (Negative) Ur Barbiturates Screen Negative (Negative) Ur Phencyclidine Scrn Negative (Negative) Ur Amphetamine Screen Negative (Negative) U Benzodiazepines Scrn Negative (Negative) Urine Cocaine Screen Negative (Negative) U Cannabinoids Screen Negative (Negative) Ethyl Alcohol (<10) mg/dL ECG Data EKG #1: Attestation: I personally reviewed and interpreted this ECG as follows: ECG completion date: 03/19/25 ECG completion time: 19:19 Interpretation: Rate of 71, rhythm is sinus rhythm, axis is indeterminate, QRS interval of 97 milliseconds, OH duration of 180 milliseconds, QTC interval 480 milliseconds, no ST elevation or depressions, no T-wave abnormalities, no old EKG on file for comparison. Critical Care Time Critical Care Time Critical Care Time: Yes Total Critical Care Time: 55 Discharge Plan Discharge Patient Disposition: Still a Patient Patient Language: Upper Sorbian Prescriptions: No Action loratadine [Claritin] 10 mg tablet 10 mg PO DAILY Qty: 30 0RF benzonatate [Tessalon Perles] 100 mg capsule 100 mg PO BID PRN (Reason: cough) Qty: 20 0RF Follow-up/Referrals: Cristo,MD Jose [Primary Care Provider, Unknown] Time of Disposition: 21:13 Quality Stroke Date of last known normal: 03/19/25 Time of last known normal: 18:30 Stroke Scale Stroke Scale 1: Stroke scale date:: 03/19/25 Stroke scale time:: 19:30 1a Level of consciousness: alert-0 1b Level of consciousness questions: answers both correctly-0 1c Level of consciousness commands: obeys both correctly-0 2 Best gaze: normal-0 3 Visual: no visual loss-0 4 Facial palsy: normal-0 5a Motor: left arm: no drift-0 5b Motor: right arm: no drift-0 6a Motor: left leg: no drift-0 6b Motor: right leg: no drift-0 7 Limb ataxia: absent-0 8 Sensory: normal-0 9 Best language: no aphasia-0 10 Dysarthria: normal-0 11 Extinction and inattention: no abnormality-0 Level:: 0
[2025-03-19 19:37] LABS: Hematocrit 37.3 % (42.0-52.0); Hemoglobin 12.3 g/dL (14.0-18.0); Immature Granulocyte Percent A 0.2 % (0-0.5); Lymphocytes Absolute Auto 2.53 K/mm3 (0.9-3.2); Mean Corpuscular HGB Conc 33.0 g/dl (32-36); Mean Corpuscular Hemoglobin 33.1 pg (26-34); Mean Corpuscular Volume 100.3 fl (80-100); Nucleated Red Blood Cells Absolute Auto 0.000 K/mm3 (0.0-0.012); Nucleated Red Blood Cells Perc 0.0 % (0.0-0.2); Platelet Count Result 219 k/mm3 (150-375); Red Blood Count 3.72 M/mm3 (4.6-6.20); White Blood Count 8.1 K/mm3 (4.5-10.0)
[2025-03-19 19:51] LABS: Alanine Aminotransferase 23 U/L (6-50); Albumin Level 4.2 g/dL (3.5-5.1); Alkaline Phosphatase 87 U/L (38-126); Anion Gap 9 mmol/L (4-12); Aspartate Amino Transferase 32 U/L (17-59); Bilirubin,Total 0.3 mg/dL (0.2-1.3); Blood Urea Nitrogen 29 mg/dL (9-20); Calcium 8.6 mg/dL (8.4-10.2); Carbon Dioxide 24 mmol/L (22-30); Chloride 107 mmol/L (98-107); Estimated CRCL calculation 62 ml/min; Estimated Glomerular Filt Rate > 60; Glucose 100 mg/dL (65-110); Lipase 106 U/L (23-300); Magnesium 2.1 mg/dL (1.6-2.3); Potassium 4.0 mmol/L (3.4-5.0); Sodium 140 mmol/L (137-145); Total Protein 6.9 g/dL (6.3-8.2)
[2025-03-19 19:59] LABS: Estimated CRCL calculation 56 ml/min; Estimated Glomerular Filt Rate > 60
[2025-03-19] MEDS: SODIUM CHLORIDE 0.9% IV 500 ML 999 ML IV CONT (19:59)
[2025-03-19 20:02] LABS: NT Pro B Type Natriuretic Pept 33 pg/mL (19.9-100); Troponin I < 0.012 ng/mL (0.000-0.034)
[2025-03-19 20:10] LABS: INR 1.0; Partial Thromboplastin Time 23.9 Seconds (22.3-36.8); Prothrombin Time 13.5 Seconds (11.1-14.7)
[2025-03-19 20:20] LABS: Thyroid Stimulating Hormone Reflex 3.210 uIU/mL (0.465-4.68)
[2025-03-19 20:24] LABS: Creatine Kinase 165 U/L (55-170)
[2025-03-19 20:33] LABS: Add Urine Microscopic? YES; Appearance Urine Cloudy (Clear); Glucose Urine UA Negative (Negative); Leukocyte Esterase Ur Negative LEU/UL (Negative); Nitrate Urine Negative (Negative); Non Pathogenic Casts 0-2; Specific Grav Ur 1.043 (1.001-1.035)
[2025-03-19 20:44] LABS: Cannabinoid Screen Urine Negative (Negative)
[2025-03-19] MEDS: SODIUM CHLORIDE 0.9% IV 1,000 ML 999 ML IV CONT (21:08)
--- NOTE | 2025-03-19 22:15 | ECG_ITS ---
Test Date: 2025-03-19 22:19:57 Measurements Intervals [place] Rate: 75 P: 26 PA: 177 QRS: -6 QRSD: 89 T: 46 QT: 381 QTc: 427 Interpretive Statements SINUS RHYTHM EARLY PRECORDIAL R/S TRANSITION BORDERLINE ECG Compared to ECG 03/19/2025 19:19:56 No significant changes Electronically Signed On 03-20-2025 06:23:39 CDT by Oleg Liu D.O.
--- NOTE | 2025-03-19 22:39 | PM.IMHP ---
H&P: HPI History of Present Illness Date/Time: 03/19/25 22:39 Chief Complaint: Vertigo Narrative: 65-year-old male presents with his to [place] [facility] via EMS complaining of vertigo. He has H lung nodule followed by Dr. Deleon, hearing loss. He has never had vertigo/dizziness/syncope before. Was going about his usual and has been in his usual state of health when he began to feel the room spinning and fell into the love seat. He had no syncope. Head and neck CTA without any acute intracranial process. He takes a baby aspirin and a cholesterol pill. He denies any recent illness, ringing in his ears, nausea or vomiting. Denies any focal weakness, shortness of breath, chest pain, fever, abdominal pain, diarrhea. ER spoke to [facility] stroke team who recommended shared decision making as to the administration of [place] K. family decided to decline administration. ER spoke with Neurology at [facility], they recommended MRI and would be available by phone. ER attempted transfer to [facility] but they declined transfer because the patient did not need a neurologist. Review of Systems Review of Systems: All systems reviewed & are unremarkable except as noted in HPI and below (Subjective) [facility] Family History Family History Mother Patient's mother is in good health Family history of thoracic aortic aneurysm Social History Social History Smoking status: Heavy tobacco smoker Meds Home Medications and Allergies Home Medications ?Medication ?Instructions ?Recorded ?Confirmed ?Type benzonatate 100 mg capsule 100 mg PO BID PRN cough #20 caps 10/16/20 Rx (Tessalon Perles) loratadine 10 mg tablet (Claritin) 10 mg PO DAILY #30 tabs 10/16/20 Rx Allergies Allergy/AdvReac Type Severity Reaction Status Date / Time No Known Allergies Allergy Mild Verified 10/16/20 13:03 Vital Signs Vital Signs - 24 hr 03/19/25 19:13 03/19/25 22:20 03/19/25 22:21 Temperature 98.0 F Pulse Rate 70 79 93 Respiratory Rate 18 Blood Pressure 158/98 H 152/92 H 156/87 H Pulse Oximetry 95 Oxygen Delivery Room Air 03/19/25 22:22 Temperature Pulse Rate 88 Respiratory Rate Blood Pressure 161/89 H Pulse Oximetry Oxygen Delivery Exam Const: General: comfortable and no acute distress Eyes: Pupils: Equal, round and reactive pupils present Other: Direction changing nystagmus: Left Lateral beating on left gaze, right lateral beating on right gait. Head impulse test Neck: Neck: supple Resp: Effort & Inspection: normal respiratory effort Auscultation: clear to auscultation bilaterally Cardio: Rate: regular rate Rhythm: regular rhythm Neuro: General: deep tendon reflexes 2+ bilaterally Motor exam (neuro): 5/5 motor strength present throughout Sensory Exam: normal sensation Extrem: General: no edema Psych: Mental Status: mental status grossly normal H&P: Results Labs Labs: Short CBC 03/19/25 Range/Units 19:29 WBC 8.1 (4.5-10.0) K/mm3 Hgb 12.3 L (14.0-18.0) g/dL Hct 37.3 L (42.0-52.0) % Plt Count 219 (150-375) k/mm3 BMP 03/19/25 03/19/25 03/19/25 19:29 19:29 19:29 Sodium Cancelled 140 Potassium Cancelled 4.0 Chloride Cancelled Carbon Dioxide BUN Creatinine Glucose Calcium 03/19/25 03/19/25 03/19/25 19:29 19:29 19:29 Sodium Potassium Chloride 107 Carbon Dioxide Cancelled 24 BUN Cancelled 29 H Creatinine Cancelled Glucose Calcium 03/19/25 03/19/25 03/19/25 19:29 19:29 19:29 Sodium Potassium Chloride Carbon Dioxide BUN Creatinine 1.00 Glucose Cancelled 100 Calcium Cancelled 8.6 03/19/25 19:48 Sodium Potassium Chloride Carbon Dioxide BUN Creatinine 1.10 Glucose Calcium Cardiac Enzymes 03/19/25 Range/Units 19:29 Total Creatine Kinase 165 (55-170) U/L Troponin I < 0.012 (0.000-0.034) ng/mL Liver Function 03/19/25 03/19/25 03/19/25 Range/Units 19:29 19:29 19:29 Total Bilirubin Cancelled 0.3 AST Cancelled 32 ALT Cancelled Alkaline Phosphatase Albumin 03/19/25 03/19/25 03/19/25 Range/Units 19:29 19:29 19:29 Total Bilirubin AST ALT 23 Alkaline Phosphatase Cancelled 87 Albumin Cancelled 4.2 Urine 03/19/25 Range/Units 20:23 Urine Color Yellow (Yellow) Urine Appearance Cloudy H (Clear) Urine pH 6.5 (5.0-9.0) Ur Specific [place] 1.043 H (1.001-1.035) Urine Protein Negative (Negative) mg/dL Urine Glucose (UA) Negative (Negative) mg/dL Assessment and Plan Assessment and plan (1) Vertigo: Code(s): R42 - Dizziness and giddiness Status: Acute Plan Patient reports his vertigo has been improving. Give aspirin 325 mg p.o. x1, follow with 81 mg p.o. q.a.m. starting on 03/20/2025. PT/OT. Fall precautions, ambulate with assistance. Neurology consult. MRI brain/brainstem with/without contrast. Patient would like to be full code. Hospitalist MIPS Advance Care Plan I have confirmed that the patient's Advanced Care Plan is present, code status is documented, or surrogate decision maker is listed in patient medical record.: Yes Medication Reconciliation I have utilized all available resources to obtain, update and review the patients current medications (includes all prescriptions, OTC, herbals, cannabis, and nutritional supplements).: Yes
[2025-03-19 22:48] LABS: Troponin I < 0.012 ng/mL (0.000-0.034)
[2025-03-19] MEDS: ASPIRIN 325 MG TABLET PO (23:07)
[2025-03-20] VITALS (11 sets, daily range): BP systolic 121–142; BP diastolic 72–90; PULSE 60–98; RESP 16–20; TEMP 36.6–36.8; O2SAT 93–96
[2025-03-20 05:52] LABS: Hematocrit 36.7 % (42.0-52.0); Hemoglobin 12.0 g/dL (14.0-18.0); Immature Granulocyte Percent A 0.4 % (0-0.5); Lymphocytes Absolute Auto 1.70 K/mm3 (0.9-3.2); Mean Corpuscular HGB Conc 32.7 g/dl (32-36); Mean Corpuscular Hemoglobin 32.9 pg (26-34); Mean Corpuscular Volume 100.5 fl (80-100); Nucleated Red Blood Cells Absolute Auto 0.000 K/mm3 (0.0-0.012); Nucleated Red Blood Cells Perc 0.0 % (0.0-0.2); Platelet Count Result 207 k/mm3 (150-375); Red Blood Count 3.65 M/mm3 (4.6-6.20); White Blood Count 8.4 K/mm3 (4.5-10.0)
[2025-03-20 06:18] LABS: Alanine Aminotransferase 20 U/L (6-50); Albumin Level 3.7 g/dL (3.5-5.1); Alkaline Phosphatase 89 U/L (38-126); Anion Gap 4 mmol/L (4-12); Aspartate Amino Transferase 34 U/L (17-59); Bilirubin,Total 0.4 mg/dL (0.2-1.3); Blood Urea Nitrogen 22 mg/dL (9-20); Calcium 8.4 mg/dL (8.4-10.2); Carbon Dioxide 24 mmol/L (22-30); Chloride 108 mmol/L (98-107); Estimated CRCL calculation 73 ml/min; Estimated Glomerular Filt Rate > 60; Glucose 93 mg/dL (65-110); Magnesium 2.2 mg/dL (1.6-2.3); Potassium 4.3 mmol/L (3.4-5.0); Sodium 136 mmol/L (137-145); Total Protein 6.2 g/dL (6.3-8.2)
--- NOTE | 2025-03-20 09:03 | P.PNIM_ITS ---
Progress Note: A&P Assessment and Plan (1) Vertigo: Code(s): R42 - Dizziness and giddiness Status: Acute (2) Stroke-like symptoms: Code(s): R29.90 - Unspecified symptoms and signs involving the nervous system Status: Acute Plan Patient reports his vertigo has been improving. Give aspirin 325 mg p.o. x1, follow with 81 mg p.o. q.a.m. starting on 03/20/2025. PT/OT. Fall precautions, ambulate with assistance. Neurology consult. MRI brain/brainstem with/without contrast. Patient would like to be full code. mri today neurology consulted tele monitor- as had similar episodes before will recheck tsh as last one was 2 years ago Time Spent With Patient Time with patient: 25 - 35 minutes Subjective Date/time seen: 03/20/25 09:03 Interval history: 89-year-old male with PMH anemia, systolic heart failure, chronic hyponatremia, acid reflux, history of colon cancer, bilateral inguinal hernias, polymyalgia rheumatica, constipation, chronic indwelling Rollins catheter, osteoporosis, COPD, AFib on Eliquis, hypertension, CKD stage 3, history of TAA status post repair, bioprosthetic AVR in 2019 at [facility] presents with weakness. The patient lives at [facility]. He only reports decreased stamina and weakness and 1 episode of non bloody vomiting the day prior to admission. Comprehensive review of systems he denies any other symptoms. He reports he is being treated for urinary tract infection with nitrofurantoin and ciprofloxacin. Per report, EMS noted patient to be febrile, but no fever in the [place] [facility] on 03/20/2025. Initially blood pressure low at 86/55. Patient receive a 30 mL per kg sepsis bolus of sodium chloride and his blood pressure improved. Also given ceftriaxone and doxycycline. WBC slightly elevated at 11,600, hemoglobin 11, INR 1.5, sodium 127, chloride 96, serum creatinine 1.79 only slightly elevated from his baseline, magnesium 1.9, lactic acid 1.0, C reactive protein 4.8, troponin within normal limit, BNP 5800, it is chronically elevated, lipase 29, TSH 2.5, urinalysis demonstrating cloudy appearance, 1+ blood, leukocyte esterase wbc's, rare bacteria, occasional squamous cells. Urine culture and blood culture x2 obtained. Head CT reported to me to be unremarkable for acute findings. CT chest with bilateral opacities. mri today. neurology consulted. he is resting in bed, still dizzy but no chest pain. hx of similar episodes before as following with cards and had to wear holter monitor before Review of Systems Review of Systems: All systems reviewed & are unremarkable except as noted in HPI and below (Subjective) Exam Const: General: comfortable and no acute distress Eyes: Pupils: Equal, round and reactive pupils present Other: Direction changing nystagmus: Left Lateral beating on left gaze, right lateral beating on right gait. Head impulse test Neck: Neck: supple Resp: Effort & Inspection: normal respiratory effort Auscultation: clear to auscultation bilaterally Cardio: Rate: regular rate Rhythm: regular rhythm Neuro: General: deep tendon reflexes 2+ bilaterally Cranial nerves: Yes Equal, round and reactive pupils present Motor exam (neuro): 5/5 motor strength present throughout Sensory Exam: normal sensation Extrem: General: no edema Psych: Mental Status: mental status grossly normal Objective Data Vital Signs Vital Signs: Vital Signs - 24 hr 03/19/25 19:13 03/19/25 19:20 03/19/25 19:30 Temperature 98.0 F Pulse Rate 70 71 70 Respiratory Rate 18 15 14 Blood Pressure 158/98 H Pulse Oximetry 95 94 Oxygen Delivery Room Air 03/19/25 19:31 03/19/25 19:55 03/19/25 20:00 Temperature Pulse Rate 70 78 81 Respiratory Rate 16 24 H Blood Pressure 154/93 H Pulse Oximetry 97 96 Oxygen Delivery 03/19/25 20:15 03/19/25 20:30 03/19/25 22:20 Temperature Pulse Rate 80 80 79 Respiratory Rate 17 17 Blood Pressure 152/92 H Pulse Oximetry 95 Oxygen Delivery 03/19/25 22:21 03/19/25 22:22 03/19/25 22:32 Temperature Pulse Rate 93 88 75 Respiratory Rate 14 Blood Pressure 156/87 H 161/89 H Pulse Oximetry Oxygen Delivery 03/19/25 22:46 03/20/25 00:05 03/20/25 00:28 Temperature 97.8 F Pulse Rate 75 69 65 Respiratory Rate 17 20 Blood Pressure 130/76 131/72 Pulse Oximetry 95 Oxygen Delivery 03/20/25 03:42 03/20/25 04:00 03/20/25 07:50 Temperature 97.8 F Pulse Rate 66 60 Respiratory Rate 20 Blood Pressure 142/90 H Pulse Oximetry 96 Oxygen Delivery Room Air Intake/Output Intake/Output: Intake & Output 03/17/25 03/18/25 03/19/25 03/20/25 23:59 23:59 23:59 23:59 Intake Total 1500 0 Output Total 225 Balance 1500 -225 Meds/Results Medications: Active Medications Generic Name Dose Route Start Last Admin Trade Name Freq PRN Reason Stop Dose Admin Aspirin 81 mg 03/20/25 09:00 Aspirin 81 Mg Enteric Tablet PO QAM AP Meclizine HCl 12.5 mg 03/20/25 00:38 Meclizine Hcl 12.5 Mg Tablet PO QID PRN vertigo Radiology Results: ITS Impressions Head/Neck CTA 03/19/25 19:56 IMPRESSION: 1. No evident atherosclerotic plaque with 0% stenosis of the right left carotid bulbs relative to normal distal artery lumen diameter (NASCET criteria). 2. Unremarkable cerebral CT angiogram with no hemodynamically significant stenosis, aneurysm or thrombosis. 3. Normal for age brain with no acute intracranial process or abnormally enhancing brain lesions. Chest X-Ray 03/19/25 20:26 IMPRESSION: 1. Increased interstitial opacities and bronchial wall thickening in the bilateral perihilar regions and left lower lung zone which could represent bronchitis and probably slight/early pneumonia or asymmetric mild pulmonary edema. Labs Labs: Laboratory Results - last 24 hr 03/19/25 03/19/25 03/19/25 19:29 19:29 19:29 WBC 8.1 RBC 3.72 L Hgb 12.3 L Hct 37.3 L MCV 100.3 H MCH 33.1 MCHC 33.0 RDW 13.2 Plt Count 219 MPV 8.9 Immature Gran % (Auto) 0.2 Neut % (Auto) 48.7 Lymph % (Auto) 31.4 [place] % (Auto) 10.4 H Eos % (Auto) 8.4 H Baso % (Auto) 0.9 Lymph # (Auto) 2.53 [place] # (Auto) 0.8 H Eos # (Auto) 0.7 H Baso # (Auto) 0.1 Abs Immat Gran (auto) 0.02 Absolute Neuts (auto) 3.9 Absolute Nucleated RBC 0.000 Nucleated RBC % 0.0 PT 13.5 INR 1.0 APTT 23.9 Sodium Cancelled 140 Potassium Cancelled 4.0 Chloride Cancelled Carbon Dioxide Anion Gap BUN Creatinine Estim Creat Clear Calc Estimated GFR Glucose POC Capillary Glucose Lactic Acid Calcium Magnesium Total Bilirubin AST ALT Alkaline Phosphatase Total Creatine Kinase Troponin I NT-Pro-B Natriuret Pep Total Protein Albumin Lipase TSH (Reflex) Urine Color Urine Appearance Urine pH Ur Specific [place] Urine Protein Urine Glucose (UA) Urine Ketones Ur Blood (Man) Urine Nitrate Urine Bilirubin Urine Urobilinogen Leukocyte Esterase Rfl Urine RBC Urine WBC Ur Squamous Epith Cells Urine Bacteria Urine Casts Urine Opiates Screen Urine Methadone Screen Ur Barbiturates Screen Ur Phencyclidine Scrn Ur Amphetamine Screen U Benzodiazepines Scrn Urine Cocaine Screen U Cannabinoids Screen Ethyl Alcohol Blood Type Antibody Screen 03/19/25 03/19/25 03/19/25 19:29 19:29 19:29 WBC RBC Hgb Hct MCV MCH MCHC RDW Plt Count MPV Immature Gran % (Auto) Neut % (Auto) Lymph % (Auto) [place] % (Auto) Eos % (Auto) Baso % (Auto) Lymph # (Auto) [place] # (Auto) Eos # (Auto) Baso # (Auto) Abs Immat Gran (auto) Absolute Neuts (auto) Absolute Nucleated RBC Nucleated RBC % PT INR APTT Sodium Potassium Chloride 107 Carbon Dioxide Cancelled 24 Anion Gap Cancelled 9 BUN Cancelled Creatinine Estim Creat Clear Calc Estimated GFR Glucose POC Capillary Glucose Lactic Acid Calcium Magnesium Total Bilirubin AST ALT Alkaline Phosphatase Total Creatine Kinase Troponin I NT-Pro-B Natriuret Pep Total Protein Albumin Lipase TSH (Reflex) Urine Color Urine Appearance Urine pH Ur Specific [place] Urine Protein Urine Glucose (UA) Urine Ketones Ur Blood (Man) Urine Nitrate Urine Bilirubin Urine Urobilinogen Leukocyte Esterase Rfl Urine RBC Urine WBC Ur Squamous Epith Cells Urine Bacteria Urine Casts Urine Opiates Screen Urine Methadone Screen Ur Barbiturates Screen Ur Phencyclidine Scrn Ur Amphetamine Screen U Benzodiazepines Scrn Urine Cocaine Screen U Cannabinoids Screen Ethyl Alcohol Blood Type Antibody Screen 03/19/25 03/19/25 03/19/25 19:29 19:29 19:29 WBC RBC Hgb Hct MCV MCH MCHC RDW Plt Count MPV Immature Gran % (Auto) Neut % (Auto) Lymph % (Auto) [place] % (Auto) Eos % (Auto) Baso % (Auto) Lymph # (Auto) [place] # (Auto) Eos # (Auto) Baso # (Auto) Abs Immat Gran (auto) Absolute Neuts (auto) Absolute Nucleated RBC Nucleated RBC % PT INR APTT Sodium Potassium Chloride Carbon Dioxide Anion Gap BUN 29 H Creatinine Cancelled 1.00 Estim Creat Clear Calc Cancelled 62 Estimated GFR Cancelled Glucose POC Capillary Glucose Lactic Acid Calcium Magnesium Total Bilirubin AST ALT Alkaline Phosphatase Total Creatine Kinase Troponin I NT-Pro-B Natriuret Pep Total Protein Albumin Lipase TSH (Reflex) Urine Color Urine Appearance Urine pH Ur Specific [place] Urine Protein Urine Glucose (UA) Urine Ketones Ur Blood (Man) Urine Nitrate Urine Bilirubin Urine Urobilinogen Leukocyte Esterase Rfl Urine RBC Urine WBC Ur Squamous Epith Cells Urine Bacteria Urine Casts Urine Opiates Screen Urine Methadone Screen Ur Barbiturates Screen Ur Phencyclidine Scrn Ur Amphetamine Screen U Benzodiazepines Scrn Urine Cocaine Screen U Cannabinoids Screen Ethyl Alcohol Blood Type Antibody Screen 03/19/25 03/19/25 03/19/25 19:29 19:29 19:29 WBC RBC Hgb Hct MCV MCH MCHC RDW Plt Count MPV Immature Gran % (Auto) Neut % (Auto) Lymph % (Auto) [place] % (Auto) Eos % (Auto) Baso % (Auto) Lymph # (Auto) [place] # (Auto) Eos # (Auto) Baso # (Auto) Abs Immat Gran (auto) Absolute Neuts (auto) Absolute Nucleated RBC Nucleated RBC % PT INR APTT Sodium Potassium Chloride Carbon Dioxide Anion Gap BUN Creatinine Estim Creat Clear Calc Estimated GFR > 60 Glucose Cancelled 100 POC Capillary Glucose Lactic Acid Calcium Cancelled 8.6 Magnesium 2.1 Total Bilirubin Cancelled AST ALT Alkaline Phosphatase Total Creatine Kinase Troponin I NT-Pro-B Natriuret Pep Total Protein Albumin Lipase TSH (Reflex) Urine Color Urine Appearance Urine pH Ur Specific [place] Urine Protein Urine Glucose (UA) Urine Ketones Ur Blood (Man) Urine Nitrate Urine Bilirubin Urine Urobilinogen Leukocyte Esterase Rfl Urine RBC Urine WBC Ur Squamous Epith Cells Urine Bacteria Urine Casts Urine Opiates Screen Urine Methadone Screen Ur Barbiturates Screen Ur Phencyclidine Scrn Ur Amphetamine Screen U Benzodiazepines Scrn Urine Cocaine Screen U Cannabinoids Screen Ethyl Alcohol Blood Type Antibody Screen 03/19/25 03/19/25 03/19/25 19:29 19:29 19:29 WBC RBC Hgb Hct MCV MCH MCHC RDW Plt Count MPV Immature Gran % (Auto) Neut % (Auto) Lymph % (Auto) [place] % (Auto) Eos % (Auto) Baso % (Auto) Lymph # (Auto) [place] # (Auto) Eos # (Auto) Baso # (Auto) Abs Immat Gran (auto) Absolute Neuts (auto) Absolute Nucleated RBC Nucleated RBC % PT INR APTT Sodium Potassium Chloride Carbon Dioxide Anion Gap BUN Creatinine Estim Creat Clear Calc Estimated GFR Glucose POC Capillary Glucose Lactic Acid Calcium Magnesium Total Bilirubin 0.3 AST Cancelled 32 ALT Cancelled 23 Alkaline Phosphatase Cancelled Total Creatine Kinase Troponin I NT-Pro-B Natriuret Pep Total Protein Albumin Lipase TSH (Reflex) Urine Color Urine Appearance Urine pH Ur Specific [place] Urine Protein Urine Glucose (UA) Urine Ketones Ur Blood (Man) Urine Nitrate Urine Bilirubin Urine Urobilinogen Leukocyte Esterase Rfl Urine RBC Urine WBC Ur Squamous Epith Cells Urine Bacteria Urine Casts Urine Opiates Screen Urine Methadone Screen Ur Barbiturates Screen Ur Phencyclidine Scrn Ur Amphetamine Screen U Benzodiazepines Scrn Urine Cocaine Screen U Cannabinoids Screen Ethyl Alcohol Blood Type Antibody Screen 03/19/25 03/19/25 03/19/25 19:29 19:29 19:29 WBC RBC Hgb Hct MCV MCH MCHC RDW Plt Count MPV Immature Gran % (Auto) Neut % (Auto) Lymph % (Auto) [place] % (Auto) Eos % (Auto) Baso % (Auto) Lymph # (Auto) [place] # (Auto) Eos # (Auto) Baso # (Auto) Abs Immat Gran (auto) Absolute Neuts (auto) Absolute Nucleated RBC Nucleated RBC % PT INR APTT Sodium Potassium Chloride Carbon Dioxide Anion Gap BUN Creatinine Estim Creat Clear Calc Estimated GFR Glucose POC Capillary Glucose Lactic Acid Calcium Magnesium Total Bilirubin AST ALT Alkaline Phosphatase 87 Total Creatine Kinase 165 Troponin I < 0.012 NT-Pro-B Natriuret Pep 33 Total Protein Cancelled 6.9 Albumin Cancelled 4.2 Lipase 106 TSH (Reflex) 3.210 Urine Color Urine Appearance Urine pH Ur Specific [place] Urine Protein Urine Glucose (UA) Urine Ketones Ur Blood (Man) Urine Nitrate Urine Bilirubin Urine Urobilinogen Leukocyte Esterase Rfl Urine RBC Urine WBC Ur Squamous Epith Cells Urine Bacteria Urine Casts Urine Opiates Screen Urine Methadone Screen Ur Barbiturates Screen Ur Phencyclidine Scrn Ur Amphetamine Screen U Benzodiazepines Scrn Urine Cocaine Screen U Cannabinoids Screen Ethyl Alcohol < 10 Blood Type Antibody Screen 03/19/25 03/19/25 03/19/25 19:37 19:48 19:57 WBC RBC Hgb Hct MCV MCH MCHC RDW Plt Count MPV Immature Gran % (Auto) Neut % (Auto) Lymph % (Auto) [place] % (Auto) Eos % (Auto) Baso % (Auto) Lymph # (Auto) [place] # (Auto) Eos # (Auto) Baso # (Auto) Abs Immat Gran (auto) Absolute Neuts (auto) Absolute Nucleated RBC Nucleated RBC % PT INR APTT Sodium Potassium Chloride Carbon Dioxide Anion Gap BUN Creatinine 1.10 Estim Creat Clear Calc 56 Estimated GFR > 60 Glucose POC Capillary Glucose 93 Lactic Acid 0.6 L Calcium Magnesium Total Bilirubin AST ALT Alkaline Phosphatase Total Creatine Kinase Troponin I NT-Pro-B Natriuret Pep Total Protein Albumin Lipase TSH (Reflex) Urine Color Urine Appearance Urine pH Ur Specific [place] Urine Protein Urine Glucose (UA) Urine Ketones Ur Blood (Man) Urine Nitrate Urine Bilirubin Urine Urobilinogen Leukocyte Esterase Rfl Urine RBC Urine WBC Ur Squamous Epith Cells Urine Bacteria Urine Casts Urine Opiates Screen Urine Methadone Screen Ur Barbiturates Screen Ur Phencyclidine Scrn Ur Amphetamine Screen U Benzodiazepines Scrn Urine Cocaine Screen U Cannabinoids Screen Ethyl Alcohol Blood Type Antibody Screen 03/19/25 03/19/25 03/20/25 20:23 22:19 05:24 WBC 8.4 RBC 3.65 L Hgb 12.0 L Hct 36.7 L MCV 100.5 H MCH 32.9 MCHC 32.7 RDW 12.9 Plt Count 207 MPV 9.0 Immature Gran % (Auto) 0.4 Neut % (Auto) 65.3 Lymph % (Auto) 20.3 [place] % (Auto) 8.2 Eos % (Auto) 5.1 H Baso % (Auto) 0.7 Lymph # (Auto) 1.70 [place] # (Auto) 0.7 H Eos # (Auto) 0.4 H Baso # (Auto) 0.1 Abs Immat Gran (auto) 0.03 Absolute Neuts (auto) 5.5 Absolute Nucleated RBC 0.000 Nucleated RBC % 0.0 PT INR APTT Sodium 136 L Potassium 4.3 Chloride 108 H Carbon Dioxide 24 Anion Gap 4 BUN 22 H Creatinine 0.84 Estim Creat Clear Calc 73 Estimated GFR > 60 Glucose 93 POC Capillary Glucose Lactic Acid Calcium 8.4 Magnesium 2.2 Total Bilirubin 0.4 AST 34 ALT 20 Alkaline Phosphatase 89 Total Creatine Kinase Troponin I < 0.012 NT-Pro-B Natriuret Pep Total Protein 6.2 L Albumin 3.7 Lipase TSH (Reflex) Urine Color Yellow Urine Appearance Cloudy H Urine pH 6.5 Ur Specific [place] 1.043 H Urine Protein Negative Urine Glucose (UA) Negative Urine Ketones Negative Ur Blood (Man) Negative Urine Nitrate Negative Urine Bilirubin Negative Urine Urobilinogen 0.2 Leukocyte Esterase Rfl Negative Urine RBC 0-2 Urine WBC 0-5 Ur Squamous Epith Cells None seen Urine Bacteria None seen Urine Casts 0-2 Urine Opiates Screen Negative Urine Methadone Screen Negative Ur Barbiturates Screen Negative Ur Phencyclidine Scrn Negative Ur Amphetamine Screen Negative U Benzodiazepines Scrn Negative Urine Cocaine Screen Negative U Cannabinoids Screen Negative Ethyl Alcohol Blood Type A Negative Antibody Screen Negative Quality VTE Prophylaxis VTE prophylaxis: mechanical ordered
[2025-03-20] MEDS: ASPIRIN 81 MG ENTERIC TABLET PO (09:26)
[2025-03-20] MEDS: MECLIZINE HCL 12.5 MG TABLET PO ×3 (09:26→20:39)
[2025-03-20] MEDS: PANTOPRAZOLE 40 MG TABLET PO ×2 (09:26→17:29)
[2025-03-20] MEDS: VALSARTAN 80 MG TABLET PO (20:39)
[2025-03-21] VITALS (9 sets, daily range): BP systolic 118–144; BP diastolic 73–78; PULSE 60–90; RESP 16–20; TEMP 36.3–36.8; O2SAT 95–97
[2025-03-21 05:37] LABS: Cholesterol 124 mg/dL (0-200); HDL Direct 36 mg/dL; Magnesium 2.1 mg/dL (1.6-2.3); Triglycerides 103 mg/dL (<150)
[2025-03-21 05:50] LABS: Thyroid Stimulating Hormone Reflex 3.840 uIU/mL (0.465-4.68)
[2025-03-21] MEDS: PANTOPRAZOLE 40 MG TABLET PO ×2 (09:25→17:15)
[2025-03-21] MEDS: ATORVASTATIN 40 MG TABLET 80 MG PO (09:25)
[2025-03-21] MEDS: ASPIRIN 81 MG ENTERIC TABLET PO (09:25)
--- NOTE | 2025-03-21 10:17 | P.PNIM_ITS ---
Progress Note: A&P Assessment and Plan (1) Vertigo: Code(s): R42 - Dizziness and giddiness Status: Acute (2) Stroke-like symptoms: Code(s): R29.90 - Unspecified symptoms and signs involving the nervous system Status: Acute Plan Patient reports his vertigo has been improving. Give aspirin 325 mg p.o. x1, follow with 81 mg p.o. q.a.m. starting on 03/20/2025. PT/OT. Fall precautions, ambulate with assistance. Neurology consult. MRI brain/brainstem with/without contrast. Patient would like to be full code. mri today neurology consulted tele monitor- as had similar episodes before will recheck tsh as last one was 2 years ago 03/21 tsn normal lipid profile normal mri completed: IMPRESSION: 1. Mild scattered mesenteric white matter T2 hyperintensity which within normal limits for age and likely sequela of chronic small vessel ischemic disease. No acute intracranial process or abnormally enhancing brain lesions. - waiting for neurology consult - continue tele, Antivert pt is a fall risk Time Spent With Patient Time with patient: 25 - 35 minutes Subjective Date/time seen: 03/21/25 10:17 Interval history: 89-year-old male with PMH anemia, systolic heart failure, chronic hyponatremia, acid reflux, history of colon cancer, bilateral inguinal hernias, polymyalgia rheumatica, constipation, chronic indwelling Rollins catheter, osteoporosis, COPD, AFib on Eliquis, hypertension, CKD stage 3, history of TAA status post repair, bioprosthetic AVR in 2019 at [facility] presents with weakness. The patient lives at [facility]. He only reports decreased stamina and weakness and 1 episode of non bloody vomiting the day prior to admission. Comprehensive review of systems he denies any other symptoms. He reports he is being treated for urinary tract infection with nitrofurantoin and ciprofloxacin. Per report, EMS noted patient to be febrile, but no fever in the [place] ER on 03/20/2025. Initially blood pressure low at 86/55. Patient receive a 30 mL per kg sepsis bolus of sodium chloride and his blood pressure improved. Also given ceftriaxone and doxycycline. WBC slightly elevated at 11,600, hemoglobin 11, INR 1.5, sodium 127, chloride 96, serum creatinine 1.79 only slightly elevated from his baseline, magnesium 1.9, lactic acid 1.0, C reactive protein 4.8, t roponin within normal limit, BNP 5800, it is chronically elevated, lipase 29, TSH 2.5, urinalysis demonstrating cloudy appearance, 1+ blood, leukocyte esterase wbc's, rare bacteria, occasional squamous cells. Urine culture and blood culture x2 obtained. Head CT reported to me to be unremarkable for acute findings. CT chest with bilateral opacities. mri today. neurology consulted. he is resting in bed, still dizzy but no chest pain. hx of similar episodes before as following with cards and had to wear holter monitor before 03/21 pt is seen and examined. he is feeling better today, less dizzy. mri completed. waiting for neurology consult. no chest pain, appetite is ok Review of Systems Review of Systems: All systems reviewed & are unremarkable except as noted in HPI and below (Subjective) Exam Narrative: pt is calm and pleasant, feeling better today Const: General: comfortable and no acute distress Eyes: Pupils: Equal, round and reactive pupils present Other: Direction changing nystagmus: Left Lateral beating on left gaze, right lateral beating on right gait. Head impulse test Neck: Neck: supple Resp: Effort & Inspection: normal respiratory effort Auscultation: clear to auscultation bilaterally Cardio: Rate: regular rate Rhythm: regular rhythm Neuro: General: deep tendon reflexes 2+ bilaterally Cranial nerves: Yes Equal, round and reactive pupils present Motor exam (neuro): 5/5 motor strength present throughout Sensory Exam: normal sensation Extrem: General: no edema Psych: Mental Status: mental status grossly normal Objective Data Vital Signs Vital Signs: Vital Signs - 24 hr 03/20/25 12:00 03/20/25 14:00 03/20/25 16:00 Temperature 98 F Pulse Rate 69 68 70 Respiratory Rate 16 Blood Pressure 140/85 Pulse Oximetry 96 Oxygen Delivery 03/20/25 20:00 03/20/25 20:00 03/20/25 21:28 Temperature Pulse Rate 73 Respiratory Rate Blood Pressure Pulse Oximetry 94 Oxygen Delivery Room Air Room Air 03/20/25 22:00 03/21/25 00:00 03/21/25 04:00 Temperature 98.2 F Pulse Rate 98 66 71 Respiratory Rate 18 Blood Pressure 121/72 Pulse Oximetry 93 Oxygen Delivery 03/21/25 05:03 Temperature 97.4 F L Pulse Rate 60 Respiratory Rate 20 Blood Pressure 141/78 H Pulse Oximetry 95 Oxygen Delivery Intake/Output Intake/Output: Intake & Output 03/18/25 03/19/25 03/20/25 03/21/25 23:59 23:59 23:59 23:59 Intake Total 1500 600 360 Output Total 425 200 Balance 1500 175 160 Meds/Results Medications: Active Medications Generic Name Dose Route Start Last Admin Trade Name Freq PRN Reason Stop Dose Admin Albuterol 1 puff 03/20/25 09:06 Albuterol Sulfate (*Sp) Aerosol 1 Puff INHALATION Q4-6H PRN Shortness Of Breath Or Wheezing Aspirin 81 mg 03/20/25 09:00 03/21/25 09:25 Aspirin 81 Mg Enteric Tablet PO 81 mg QAM AP Administration Atorvastatin Calcium 80 mg 03/21/25 09:00 03/21/25 09:25 Atorvastatin 40 Mg Tablet PO 80 mg DAILY AP Administration Meclizine HCl 12.5 mg 03/20/25 00:38 03/20/25 20:39 Meclizine Hcl 12.5 Mg Tablet PO 12.5 mg QID PRN Administration vertigo Pantoprazole Sodium 40 mg 03/20/25 10:00 03/21/25 09:25 Pantoprazole 40 Mg Tablet PO 40 mg BID AP Administration Polyethylene Glycol 17 gm 03/20/25 16:24 Polyethylene Glycol 3350 17 Gm Powd.Pack PO DAILY PRN Constipation Valsartan 80 mg 03/20/25 21:00 03/20/25 20:39 Valsartan 80 Mg Tablet PO 80 mg HS AP Administration Radiology Results: ITS Impressions Head/Neck CTA 03/19/25 19:56 IMPRESSION: 1. No evident atherosclerotic plaque with 0% stenosis of the right left carotid bulbs relative to normal distal artery lumen diameter (NASCET criteria). 2. Unremarkable cerebral CT angiogram with no hemodynamically significant stenosis, aneurysm or thrombosis. 3. Normal for age brain with no acute intracranial process or abnormally enhancing brain lesions. Chest X-Ray 03/19/25 20:26 IMPRESSION: 1. Increased interstitial opacities and bronchial wall thickening in the bilateral perihilar regions and left lower lung zone which could represent bronchitis and probably slight/early pneumonia or asymmetric mild pulmonary edema. Brain MRI 03/20/25 17:11 IMPRESSION: 1. Mild scattered mesenteric white matter T2 hyperintensity which within normal limits for age and likely sequela of chronic small vessel ischemic disease. No acute intracranial process or abnormally enhancing brain lesions. Labs Labs: Laboratory Results - last 24 hr 03/21/25 04:38 Magnesium 2.1 Triglycerides 103 Cholesterol 124 LDL Cholesterol Direct 56 HDL Direct 36 TSH (Reflex) 3.840 Quality VTE Prophylaxis VTE prophylaxis: mechanical ordered
--- NOTE | 2025-03-21 10:38 | WPDNEURCNPN ---
Assessment and Plan Assessment and plan (1) Vertigo: Code(s): R42 - Dizziness and giddiness Status: Acute Plan overall findings suggestive of peripheral vestibular pathology although cannot localize on which side he has a problem at this time. I do not see any nystagmus but as we know that sometimes the nystagmus can be fatigable particular is a benign positional vertigo. Lead to the about the condition and possible exercise plan the physical therapy was here at the time when I saw the patient and she is going to explained to him about the exercise to be done at home. Reassured them that he does not have any findings suggestive of brainstem stroke at this time. He has a MRI and a CT scan of the brain and CT angiogram of the head and neck also did not show any significant abnormalities. We can treat him symptomatically other since we have all the information with the meclizine 25 mg 3 to 4 times a day provided he does not have any side effects from the medication. If symptoms continue then he will need to do exercises which he can be taught to do it at home. The patient is hard of hearing and has a hearing aid in place. If the symptoms persist an opinion from a neuro linen worker can be arranged. He will also see a ENT physician for an opinion. I shall be glad to see him as an outpatient if necessary. Consult date: 03/21/25 HPI: Ronni Camp is a 65 year old male brought in via EMS to the hospital 2 days ago with onset of vertigo. The patient never had symptoms like that. He is fairly busy all day around 630 the evening he suddenly became listless according to . She thought that he was having a heart attack. He was having a sense of rotation and here sense of imbalance and he could not walk. No headache diplopia or difficulty speech or swallowing. He has some drooling of saliva at times that his has noted over the last few days. He has hearing loss and has a hearing aid in place. He denies any tinnitus. He denies any weakness in upper lower limbs. The symptoms have partially improved since he arrived however this seemed to persist the extent he is afraid to move too much or if he turns his head around he started to a sense of rotation. He did not have any passing out spell. He denies any cardiac problems. He has had a CT scan of the brain and CT angiogram head and neck in the emergency room which did not show any abnormality. There was some discussion with the stroke team in [place] regarding use of TNK but the patient declined and preferred to stay here. Patient lives his . Subsequently an MRI of the brain was performed yesterday which shows no significant findings. Mild aging changes were described. His the lipid profile shows LDL was 56. Physical therapist tried to have him walk and do a few test by herself and she could not know any definite conclusion about vestibular problem at this time. Review of Systems Review of Systems: All systems reviewed & are unremarkable except as noted in HPI and below PMFSH Family History Family History Mother Patient's mother is in good health Family history of thoracic aortic aneurysm Social History Social History Smoking packs per day: 0.5 Smoking cigarettes per day: 10.0 Years smoked: 40 Smoking pack-years: 20.00 Smoking status: Former smoker Tobacco type: cigarettes Smoking end date: 09/09/24 Alcohol intake: former Substance use: never Lack of Transportation: No Lack of Food: Never True Current Housing: I Have Housing Concerned About Future Housing: No Difficulty Paying Gas/Electric Bills: No Difficulty Paying for Meds: No Currently Unemployed: No Education: High School Diploma/GED Difficulty w/ Childcare or Family Care: No Spiritual care concerns: No Meds Home Medications and Allergies Home Medications ?Medication ?Instructions ?Recorded ?Confirmed ?Type albuterol sulfate 90 mcg/actuation 1 puff inhalation Q4-6H PRN 03/19/25 03/20/25 History aerosol inhaler shortness of breath or wheezing aspirin 81 mg chewable tablet 1 tablet PO DAILY 03/19/25 03/20/25 History atorvastatin 80 mg tablet 80 mg PO DAILY 03/20/25 03/20/25 History omeprazole 40 mg capsule,delayed 40 mg PO DAILY 03/20/25 03/20/25 History release valsartan 80 mg tablet 80 mg PO HS 03/20/25 03/20/25 History Allergies Allergy/AdvReac Type Severity Reaction Status Date / Time No Known Allergies Allergy Mild Verified 10/16/20 13:03 Vital Signs Vital Signs - 24 hr 03/20/25 12:00 03/20/25 14:00 03/20/25 16:00 Temperature 98 F Pulse Rate 69 68 70 Respiratory Rate 16 Blood Pressure 140/85 Pulse Oximetry 96 Oxygen Delivery 03/20/25 20:00 03/20/25 20:00 03/20/25 21:28 Temperature Pulse Rate 73 Respiratory Rate Blood Pressure Pulse Oximetry 94 Oxygen Delivery Room Air Room Air 03/20/25 22:00 03/21/25 00:00 03/21/25 04:00 Temperature 98.2 F Pulse Rate 98 66 71 Respiratory Rate 18 Blood Pressure 121/72 Pulse Oximetry 93 Oxygen Delivery 03/21/25 05:03 03/21/25 09:27 Temperature 97.4 F L Pulse Rate 60 Respiratory Rate 20 Blood Pressure 141/78 H Pulse Oximetry 95 Oxygen Delivery Room Air Exam Const: General: cooperative Other: The patient appears anxious and is afraid to stand up or walk or move his head HENMT: Head: atraumatic Mouth: Yes oropharynx normal Eyes: Alignment and Position: alignment normal and position normal EOM: EOMs intact bilaterally Neck: Neck: normal visual inspection and supple Resp: Effort & Inspection: normal respiratory effort Cardio: Heart sounds: S1 normal heart sound present and S2 normal heart sound present Skin: General skin exam: normal color Neuro: Cranial nerves: Yes CN's II-XII intact bilaterally, Yes facial symmetry and Yes Midline tongue present Cognition (Neuro): normal cognition Speech: normal speech Motor exam (neuro): 5/5 motor strength present throughout and Normal motor muscle tone present throughout Sensory Exam: normal sensation Coordination: [id number] test normal and Normal rapid alternating movements of the distal upper extremity present (Neuro) Other: no intention tremor. No nystagmus. Step test was attempted but the patient unable to do so in view of being his symptoms. Patient has a somewhat of a nasal voice however this longstanding. No involuntary movements are seen. Extrem: General: normal to inspection Psych: Appearance: well kempt Mental Status: mental status grossly normal Speech and movement: Normal speech and movement present Affect: normal affect Thought process: Normal thought process present Thought content: Yes Normal thought content present Insight: Good insight present (Psych) Judgement: Good judgement present (Psych) Results Labs 03/20/25 05:24 03/20/25 05:24 Imaging Attestation: I personally reviewed and interpreted this imaging study as follows: ( MRI of the brain and CT angiogram of the head and neck and CT scan of brain) My impression: no significant abnormal findings were noted. No evidence of acute infarct with attention to the brainstem area. Radiologist's impression: Same
[2025-03-21] MEDS: MECLIZINE HCL 25 MG TABLET PO (16:26)
[2025-03-21] MEDS: VALSARTAN 80 MG TABLET PO (20:46)
[2025-03-22] VITALS (9 sets, daily range): BP systolic 113–119; BP diastolic 75–82; PULSE 62–79; RESP 17–18; TEMP 36.3–36.6; O2SAT 93–97
[2025-03-22 05:27] LABS: Hematocrit 39.2 % (42.0-52.0); Hemoglobin 13.1 g/dL (14.0-18.0); Mean Corpuscular HGB Conc 33.4 g/dl (32-36); Mean Corpuscular Hemoglobin 32.8 pg (26-34); Mean Corpuscular Volume 98.0 fl (80-100); Platelet Count Result 197 k/mm3 (150-375); Red Blood Count 4.00 M/mm3 (4.6-6.20); White Blood Count 7.7 K/mm3 (4.5-10.0)
[2025-03-22 05:48] LABS: Anion Gap 7 mmol/L (4-12); Blood Urea Nitrogen 20 mg/dL (9-20); Calcium 8.7 mg/dL (8.4-10.2); Carbon Dioxide 25 mmol/L (22-30); Chloride 103 mmol/L (98-107); Estimated CRCL calculation 70 ml/min; Estimated Glomerular Filt Rate > 60; Glucose 89 mg/dL (65-110); Potassium 4.4 mmol/L (3.4-5.0); Sodium 135 mmol/L (137-145)
--- NOTE | 2025-03-22 09:30 | PM.IMPN ---
Progress Note: A&P Assessment and Plan (1) Vertigo: Code(s): R42 - Dizziness and giddiness Status: Acute (2) Stroke-like symptoms: Code(s): R29.90 - Unspecified symptoms and signs involving the nervous system Status: Acute Plan Patient reports his vertigo has been improving. Give aspirin 325 mg p.o. x1, follow with 81 mg p.o. q.a.m. starting on 03/20/2025. PT/OT. Fall precautions, ambulate with assistance. Neurology consult. MRI brain/brainstem with/without contrast. Patient would like to be full code. mri today neurology consulted tele monitor- as had similar episodes before will recheck tsh as last one was 2 years ago 03/21 tsn normal lipid profile normal mri completed: IMPRESSION: 1. Mild scattered mesenteric white matter T2 hyperintensity which within normal limits for age and likely sequela of chronic small vessel ischemic disease. No acute intracranial process or abnormally enhancing brain lesions. - waiting for neurology consult - continue tele, Antivert pt is a fall risk 03/22 - no acute events overnight, waiting for ENT consult and recommendations labs reviewed and stable Time Spent With Patient Time with patient: 25 - 35 minutes Subjective Date/time seen: 03/22/25 09:30 Interval history: 89-year-old male with PMH anemia, systolic heart failure, chronic hyponatremia, acid reflux, history of colon cancer, bilateral inguinal hernias, polymyalgia rheumatica, constipation, chronic indwelling Rollins catheter, osteoporosis, COPD, AFib on Eliquis, hypertension, CKD stage 3, history of TAA status post repair, bioprosthetic AVR in 2019 at [facility] presents with weakness. The patient lives at [facility]. He only reports decreased stamina and weakness and 1 episode of non bloody vomiting the day prior to admission. Comprehensive review of systems he denies any other symptoms. He reports he is being treated for urinary tract infection with nitrofurantoin and ciprofloxacin. Per report, EMS noted patient to be febrile, but no fever in the [place] ER on 03/20/2025. Initially blood pressure low at 86/55. Patient receive a 30 mL per kg sepsis bolus of sodium chloride and his blood pressure improved. Also given ceftriaxone and doxycycline. WBC slightly elevated at 11,600, hemoglobin 11, INR 1.5, sodium 127, chloride 96, serum creatinine 1.79 only slightly elevated from his baseline, magnesium 1.9, lactic acid 1.0, C reactive protein 4.8, troponin within normal limit, BNP 5800, it is chronically elevated, lipase 29, TSH 2.5, urinalysis demonstrating cloudy appearance, 1+ blood, leukocyte esterase wbc's, rare bacteria, occasional squamous cells. Urine culture and blood culture x2 obtained. Head CT reported to me to be unremarkable for acute findings. CT chest with bilateral opacities. mri today. neurology consulted. he is resting in bed, still dizzy but no chest pain. hx of similar episodes before as following with cards and had to wear holter monitor before 03/21 pt is seen and examined. he is feeling better today, less dizzy. mri completed. waiting for neurology consult. no chest pain, appetite is ok 03/22- ent consulted. awaiting recommendations. pt is doing well this ma, still dizzy with position change but not worse. Review of Systems Review of Systems: All systems reviewed & are unremarkable except as noted in HPI and below (Subjective) Exam Narrative: pt is calm and pleasant Const: General: comfortable and no acute distress Eyes: Pupils: Equal, round and reactive pupils present Other: Direction changing nystagmus: Left Lateral beating on left gaze, right lateral beating on right gait. Head impulse test Neck: Neck: supple Resp: Effort & Inspection: normal respiratory effort Auscultation: clear to auscultation bilaterally Cardio: Rate: regular rate Rhythm: regular rhythm Neuro: General: deep tendon reflexes 2+ bilaterally Cranial nerves: Yes Equal, round and reactive pupils present Motor exam (neuro): 5/5 motor strength present throughout Sensory Exam: normal sensation Extrem: General: no edema Psych: Mental Status: mental status grossly normal Objective Data Vital Signs Vital Signs: Vital Signs - 24 hr 03/21/25 12:00 03/21/25 12:00 03/21/25 14:00 Temperature 97.7 F Pulse Rate 79 75 Respiratory Rate 16 Blood Pressure 118/75 Pulse Oximetry 97 Oxygen Delivery Room Air 03/21/25 16:00 03/21/25 20:00 03/21/25 20:00 Temperature Pulse Rate 68 72 Respiratory Rate Blood Pressure Pulse Oximetry Oxygen Delivery Room Air 03/21/25 21:01 03/22/25 00:00 03/22/25 04:00 Temperature 98.2 F Pulse Rate 65 62 64 Respiratory Rate 16 Blood Pressure 144/73 H Pulse Oximetry 96 Oxygen Delivery 03/22/25 04:55 Temperature 97.4 F L Pulse Rate 64 Respiratory Rate 17 Blood Pressure 119/76 Pulse Oximetry 93 Oxygen Delivery Intake/Output Intake/Output: Intake & Output 03/19/25 03/20/25 03/21/25 03/22/25 23:59 23:59 23:59 23:59 Intake Total 1500 600 840 Output Total 425 200 Balance 1500 175 640 Meds/Results Medications: Active Medications Generic Name Dose Route Start Last Admin Trade Name Freq PRN Reason Stop Dose Admin Albuterol 1 puff 03/20/25 09:06 Albuterol Sulfate (*Sp) Aerosol 1 Puff INHALATION Q4-6H PRN Shortness Of Breath Or Wheezing Aspirin 81 mg 03/20/25 09:00 03/21/25 09:25 Aspirin 81 Mg Enteric Tablet PO 81 mg QAM AP Administration Atorvastatin Calcium 80 mg 03/21/25 09:00 03/21/25 09:25 Atorvastatin 40 Mg Tablet PO 80 mg DAILY AP Administration Meclizine HCl 25 mg 03/21/25 10:46 03/21/25 16:26 Meclizine Hcl 25 Mg Tablet PO 25 mg QID PRN Administration vertigo Pantoprazole Sodium 40 mg 03/20/25 10:00 03/21/25 17:15 Pantoprazole 40 Mg Tablet PO 40 mg BID AP Administration Polyethylene Glycol 17 gm 03/20/25 16:24 03/21/25 11:33 Polyethylene Glycol 3350 17 Gm Powd.Pack PO 17 gm DAILY PRN Administration Constipation Valsartan 80 mg 03/20/25 21:00 03/21/25 20:46 Valsartan 80 Mg Tablet PO 80 mg HS AP Administration Radiology Results: ITS Impressions Head/Neck CTA 03/19/25 19:56 IMPRESSION: 1. No evident atherosclerotic plaque with 0% stenosis of the right left carotid bulbs relative to normal distal artery lumen diameter (NASCET criteria). 2. Unremarkable cerebral CT angiogram with no hemodynamically significant stenosis, aneurysm or thrombosis. 3. Normal for age brain with no acute intracranial process or abnormally enhancing brain lesions. Chest X-Ray 03/19/25 20:26 IMPRESSION: 1. Increased interstitial opacities and bronchial wall thickening in the bilateral perihilar regions and left lower lung zone which could represent bronchitis and probably slight/early pneumonia or asymmetric mild pulmonary edema. Brain MRI 03/20/25 17:11 IMPRESSION: 1. Mild scattered mesenteric white matter T2 hyperintensity which within normal limits for age and likely sequela of chronic small vessel ischemic disease. No acute intracranial process or abnormally enhancing brain lesions. Labs Labs: Laboratory Results - last 24 hr 03/22/25 05:15 WBC 7.7 RBC 4.00 L Hgb 13.1 L Hct 39.2 L MCV 98.0 MCH 32.8 MCHC 33.4 RDW 12.7 Plt Count 197 MPV 8.9 Sodium 135 L Potassium 4.4 Chloride 103 Carbon Dioxide 25 Anion Gap 7 BUN 20 Creatinine 0.88 Estim Creat Clear Calc 70 Estimated GFR > 60 Glucose 89 Calcium 8.7 Quality VTE Prophylaxis VTE prophylaxis: mechanical ordered
[2025-03-22] MEDS: ATORVASTATIN 40 MG TABLET 80 MG PO (09:57)
[2025-03-22] MEDS: PANTOPRAZOLE 40 MG TABLET PO ×2 (09:57→17:35)
[2025-03-22] MEDS: ASPIRIN 81 MG ENTERIC TABLET PO (09:57)
[2025-03-22] MEDS: VALSARTAN 80 MG TABLET PO (20:43)
[2025-03-23] VITALS: PULSE 69
[2025-03-23 04:00] VITALS: PULSE 68
[2025-03-23 04:13] VITALS: BP 117/76; PULSE 74; RESP 20; TEMP 36.8; O2SAT 93
[2025-03-23 05:36] LABS: Hematocrit 40.5 % (42.0-52.0); Hemoglobin 13.3 g/dL (14.0-18.0); Mean Corpuscular HGB Conc 32.8 g/dl (32-36); Mean Corpuscular Hemoglobin 32.7 pg (26-34); Mean Corpuscular Volume 99.5 fl (80-100); Platelet Count Result 205 k/mm3 (150-375); Red Blood Count 4.07 M/mm3 (4.6-6.20); White Blood Count 10.4 K/mm3 (4.5-10.0)
[2025-03-23 05:58] LABS: Anion Gap 7 mmol/L (4-12); Blood Urea Nitrogen 20 mg/dL (9-20); Calcium 8.8 mg/dL (8.4-10.2); Carbon Dioxide 26 mmol/L (22-30); Chloride 102 mmol/L (98-107); Estimated CRCL calculation 63 ml/min; Estimated Glomerular Filt Rate > 60; Glucose 90 mg/dL (65-110); Potassium 4.4 mmol/L (3.4-5.0); Sodium 135 mmol/L (137-145)
[2025-03-23 08:00] VITALS: PULSE 87
--- NOTE | 2025-03-23 08:56 | PM.DS ---
DS: Admitting Diagnosis Discharge Date 03/23 Admitting Diagnosis vertigo DS: Discharge Diagnosis Discharge Diagnosis (1) Vertigo: Code(s): R42 - Dizziness and giddiness Status: Acute (2) Stroke-like symptoms: Code(s): R29.90 - Unspecified symptoms and signs involving the nervous system Status: Acute DS: Summary Hospital Course Hospital Course: Patient reports his vertigo has been improving. Give aspirin 325 mg p.o. x1, follow with 81 mg p.o. q.a.m. starting on 03/20/2025. PT/OT. Fall precautions, ambulate with assistance. Neurology consult. MRI brain/brainstem with/without contrast. tsn normal lipid profile normal mri completed: IMPRESSION: 1. Mild scattered mesenteric white matter T2 hyperintensity which within normal limits for age and likely sequela of chronic small vessel ischemic disease. No acute intracranial process or abnormally enhancing brain lesions. - waiting for neurology consult - continue tele, Antivert Neurology saw pt and no acute interventions needed. See DR Davis note: overall findings suggestive of peripheral vestibular pathology although cannot localize on which side he has a problem at this time. I do not see any nystagmus but as we know that sometimes the nystagmus can be fatigable particular is a benign positional vertigo. Lead to the about the condition and possible exercise plan the physical therapy was here at the time when I saw the patient and she is going to explained to him about the exercise to be done at home. Reassured them that he does not have any findings suggestive of brainstem stroke at this time. He has a MRI and a CT scan of the brain and CT angiogram of the head and neck also did not show any significant abnormalities. We can treat him symptomatically other since we have all the information with the meclizine 25 mg 3 to 4 times a day provided he does not have any side effects from the medication. If symptoms continue then he will need to do exercises which he can be taught to do it at home. The patient is hard of hearing and has a hearing aid in place. If the symptoms persist an opinion from a neuro fundraising consultant can be arranged. He will also see a ENT physician for an opinion. I shall be glad to see him as an outpatient if necessary. ENT was consulted and they will see him as an outpt. We will order Holter monitor for him and he will f/u with his nerve specialist in April when he already has an damairs scheduled. Status at Discharge Functional status at discharge: independent ambulation Overall status at discharge: patient is progressing back to baseline Time Spent with Patient Time attestation: Total time spent providing and/or coordinating discharge services: Time spent: Greater than 30 minutes Exam Narrative: pt is calm and pleasant, sitting up in a chair. feeling less dizzy this am Const: General: comfortable and no acute distress Eyes: Pupils: Equal, round and reactive pupils present Other: Direction changing nystagmus: Left Lateral beating on left gaze, right lateral beating on right gait. Head impulse test Neck: Neck: supple Resp: Effort & Inspection: normal respiratory effort Auscultation: clear to auscultation bilaterally Cardio: Rate: regular rate Rhythm: regular rhythm Neuro: General: deep tendon reflexes 2+ bilaterally Cranial nerves: Yes Equal, round and reactive pupils present Motor exam (neuro): 5/5 motor strength present throughout Sensory Exam: normal sensation Extrem: General: no edema Psych: Mental Status: mental status grossly normal DS: Data Data Completed and Pending Completed studies during hospitalization: mri Labs on day of discharge: Labs from last 24 hours 03/23/25 05:17 WBC 10.4 H RBC 4.07 L Hgb 13.3 L Hct 40.5 L MCV 99.5 MCH 32.7 MCHC 32.8 RDW 12.6 Plt Count 205 MPV 8.9 Sodium 135 L Potassium 4.4 Chloride 102 Carbon Dioxide 26 Anion Gap 7 BUN 20 Creatinine 0.98 Estim Creat Clear Calc 63 Estimated GFR > 60 Glucose 90 Calcium 8.8 Discharge Plan Discharge Attending physician on discharge: Dony Haney Oca Consulting providers: Gt Davis; Albert Mclaughlin Discharging Clinician: Faviola Dan Patient Disposition: Home Activity: october shower Diet: heart healthy Patient Instructions: Antibiotic Form Patient Language: Northern Irish Stand Alone Forms: General Discharge Information Follow-up/Referrals: Cristo,MD Jose [Primary Care Provider, Unknown] - 2 Weeks Albert Mclaughlin MD [Physician, Ear, Nose, Throat] - 1 Week Discharge Medications: New meclizine 25 mg Tablet 25 mg PO QID PRN (Reason: vertigo) Qty: 30 0RF Continued aspirin 81 mg tablet,chewable 1 tablet PO DAILY albuterol sulfate 90 mcg/actuation HFA aerosol inhaler 1 puff INHALATION Q4-6H PRN (Reason: shortness of breath or wheezing) atorvastatin 80 mg tablet 80 mg PO DAILY omeprazole 40 mg capsule,delayed release(DR/EC) 40 mg PO DAILY valsartan 80 mg tablet 80 mg PO HS Date of admission: 03/19/25 22:23 Primary Care Provider: CristoJose Admitting Provider: Nya Alcazar Attending physician on admission: Nya Alcazar Condition: Stable Quality VTE Prophylaxis VTE prophylaxis: mechanical ordered Hospitalist MIPS Heart Failure (Exclusion) Patient has history of Heart Transplant or Left Ventricular Assistive Device?: No IF YES, STOP HERE Heart Failure (Qualifier) Patient has current or prior documentation of LVEF less than or equal to 40%, or mod/servere depressed LVSF?: No IF NO, STOP HERE
[2025-03-23] MEDS: ATORVASTATIN 40 MG TABLET 80 MG PO (09:07)
[2025-03-23] MEDS: MECLIZINE HCL 25 MG TABLET PO (09:07)
[2025-03-23] MEDS: ASPIRIN 81 MG ENTERIC TABLET PO (09:07)
[2025-03-23] MEDS: PANTOPRAZOLE 40 MG TABLET PO (09:07)
== END 2025-03-23 12:05 | disposition home or self-care (01) ==
LOC: ANHED 21:13 → ANH2MED 03-20 12:14 → ANH3MEDSUR 03-24 08:21
PROVIDERS: Nurse Practitioner; Admitting Provider General Practice; Emergency Provider Student in an Organized Health Care Education/Training Program; PCP Internal Medicine; Visit Provider Student in an Organized Health Care Education/Training Program
DX: R42 Dizziness and giddiness (principal); R29.90 Unspecified symptoms and signs involving the nervous system; R53.1 Weakness; R91.8 Other nonspecific abnormal finding of lung field; R94.31 Abnormal electrocardiogram [ECG] [EKG]; E87.1 Hypo-osmolality and hyponatremia; J44.9 Chronic obstructive pulmonary disease, unspecified; I48.91 Unspecified atrial fibrillation; I13.0 Hypertensive heart and chronic kidney disease with heart failure and stage 1 through stage 4 chronic kidney disease, or unspecified chronic kidney disease; N18.30 Chronic kidney disease, stage 3 unspecified; H91.90 Unspecified hearing loss, unspecified ear; I50.20 Unspecified systolic (congestive) heart failure; K40.20 Bilateral inguinal hernia, without obstruction or gangrene, not specified as recurrent; M81.0 Age-related osteoporosis without current pathological fracture; Z79.82 Long term (current) use of aspirin; Z79.01 Long term (current) use of anticoagulants; Z95.2 Presence of prosthetic heart valve; Z95.828 Presence of other vascular implants and grafts; Z87.891 Personal history of nicotine dependence; Z86.79 Personal history of other diseases of the circulatory system; Z87.09 Personal history of other diseases of the respiratory system; Z85.038 Personal history of other malignant neoplasm of large intestine; Z87.39 Personal history of other diseases of the musculoskeletal system and connective tissue; Z87.19 Personal history of other diseases of the digestive system; Z82.49 Family history of ischemic heart disease and other diseases of the circulatory system
CPT/HCPCS: 36415; 70496; 70498; 70553; 71045; 80048; 80053; 80061; 80307; 81001; 82077; 82550; 82948; 83605; 83690; 83735; 83880; 84443; 84484; 85025; 85027; 85610; 85730; 86850; 86900; 86901; 93005; 96361; 96374; 97112; 97161; 97165; 97530; 97550; 99285; A9270; A9577; G0378; J7030; J7040; Q9967